=== PATIENT | male | born 2000 | race Two or more races ===

== ENCOUNTER 2022-02-18 12:37 | Emergency (ER) | payer MEDICAID, SELFPAY ==
[2022-02-18 13:05] VITALS: BP 135/60; PULSE 75; RESP 18; TEMP 36.4; O2SAT 97; BMI 25.8
--- NOTE | 2022-02-18 13:09 | ED.URI ---
HPI - URI/Sore Throat General Chief Complaint: General Medical <CLARITA Hernández - Last Filed: 02/18/22 13:11> Stated Complaint: dental pain <CLARITA Hernández - Last Filed: 02/18/22 13:11> Time Seen by Provider: 02/18/22 13:24 <CLARITA Hernández - Last Filed: 02/18/22 13:11> Source: patient <Casper Dior MD - Last Filed: 02/18/22 15:05> Mode of arrival: ambulatory <Casper Dior MD - Last Filed: 02/18/22 15:05> Limitations: no limitations <Casper Dior MD - Last Filed: 02/18/22 15:05> History of Present Illness HPI Narrative: 1.5 weeks of sore throat, now getting worse, denies fever <Casper Dior MD - Last Filed: 02/18/22 15:05> MD elicited complaint: sore throat <Casper Dior MD - Last Filed: 02/18/22 15:05> Onset (ago): week(s) <Casper Dior MD - Last Filed: 02/18/22 15:05> Consistency: constant <Casper Dior MD - Last Filed: 02/18/22 15:05> Severity: moderate <Casper Dior MD - Last Filed: 02/18/22 15:05> Exacerbating factors: swallowing <Casper Dior MD - Last Filed: 02/18/22 15:05> Associated symptoms: denies other symptoms <Casper Dior MD - Last Filed: 02/18/22 15:05> Related Data Home Medications: Previous Rx's Medication Instructions Recorded amoxicillin 875 mg-potassium 1 tab PO BID #20 tabs 02/18/22 clavulanate 125 mg tablet amoxicillin 875 mg-potassium 1 tab PO BID #20 tabs 02/18/22 clavulanate 125 mg tablet naproxen 500 mg tablet (Naprosyn) 500 mg PO BID #20 tabs 02/18/22 <CLARITA Hernández - Last Filed: 02/18/22 13:11> Allergies/Adverse Reactions: Allergies Allergy/AdvReac Type Severity Reaction Status Date / Time No Known Allergies Allergy Unverified 11/19/19 17:08 <CLARITA Hernández - Last Filed: 02/18/22 13:11> Review of Systems Review of Systems: Yes all other systems are reviewed and are negative <Casper Dior MD - Last Filed: 02/18/22 15:05> ENT: Reports other (sore throat) <Casper Dior MD - Last Filed: 02/18/22 15:05> Neurologic: Denies Sensory deficit (Neuro) <Casper Dior MD - Last Filed: 02/18/22 15:05> [facility] Social History Social History: Social History Smoked in Last 30 Days: Yes Use of substances other than those prescribed or required for medical reasons: Yes Substance Use Type: Marijuana Advance Directives: No Advance Directives Information Provided: Yes <CLARITA Hernández - Last Filed: 02/18/22 13:11> Physical Exam Vital Signs: Vital Signs: Last Vital Signs Temp 98.6 F 02/18/22 13:50 Pulse 57 02/18/22 13:50 Resp 16 02/18/22 13:50 BP 104/61 02/18/22 13:50 Pulse Ox 97 02/18/22 13:50 O2 Del Method 02/18/22 13:50 BMI result Body Mass Index 25.8 <CLARITA Hernández - Last Filed: 02/18/22 13:11> Vital Signs: Last Vital Signs Temp 98.6 F 02/18/22 13:50 Pulse 57 02/18/22 13:50 Resp 16 02/18/22 13:50 BP 104/61 02/18/22 13:50 Pulse Ox 97 02/18/22 13:50 O2 Del Method 02/18/22 13:50 BMI result Body Mass Index 25.8 <Casper Dior MD - Last Filed: 02/18/22 15:05> Const: General: healthy appearing <Casper Dior MD - Last Filed: 02/18/22 15:05> Nutritional Appearance: average body habitus <Casper Dior MD - Last Filed: 02/18/22 15:05> Orientation/consciousness: oriented to person and patient oriented x3 <Casper Dior MD - Last Filed: 02/18/22 15:05> Limitations: no limitations <Casper Dior MD - Last Filed: 02/18/22 15:05> HEENT: Other: Pharynx with right sided erythema and swelling, no fluctuance to palpation. Patient with pharyngeal cellulitis extending to hard pallate <Casper Dior MD - Last Filed: 02/18/22 15:05> Head: Yes normal to inspection <Casper Dior MD - Last Filed: 02/18/22 15:05> Ears: external ears normal <Casper Dior MD - Last Filed: 02/18/22 15:05> General nose exam: Normal external nose present <Casper Dior MD - Last Filed: 02/18/22 15:05> Throat: Yes posterior oropharynx normal <Casper Dior MD - Last Filed: 02/18/22 15:05> Eyes: General: appearance normal, both eyes and all related structures <Casper Dior MD - Last Filed: 02/18/22 15:05> Neck: Other: supple <Casper Dior MD - Last Filed: 02/18/22 15:05> Neck: Yes normal visual inspection <Casper Dior MD - Last Filed: 02/18/22 15:05> Chest: Chest palpation & inspection: normal inspection of the chest <Casper Dior MD - Last Filed: 02/18/22 15:05> Resp: Auscultation: clear to auscultation bilaterally <Casper Dior MD - Last Filed: 02/18/22 15:05> Cardio: Jugular venous distension: no JVD <Casper Dior MD - Last Filed: 02/18/22 15:05> Rate: regular rate <Casper Dior MD - Last Filed: 02/18/22 15:05> Rhythm: regular rhythm <Casper Dior MD - Last Filed: 02/18/22 15:05> Heart sounds: S1 normal heart sound present and S2 normal heart sound present <Casper Dior MD - Last Filed: 02/18/22 15:05> GI: Inspection: Yes normal to inspection <Casper Dior MD - Last Filed: 02/18/22 15:05> Palpation (GI): Soft to palpation, nontender and No hepatosplenomegaly present <Casper Dior MD - Last Filed: 02/18/22 15:05> Auscultation: normal bowel sounds <Casper Dior MD - Last Filed: 02/18/22 15:05> : General: Yes no CVA tenderness <Casper Dior MD - Last Filed: 02/18/22 15:05> Back/Spine/Pelvis: Back: no CVA tenderness <Casper Dior MD - Last Filed: 02/18/22 15:05> Skin: General skin exam: no rashes or lesions noted <Casper Doir MD - Last Filed: 02/18/22 15:05> Neuro: General: oriented to person and patient oriented x3 <Casper Dior MD - Last Filed: 02/18/22 15:05> Cranial nerves: Yes CN's II-XII intact bilaterally <Casper Dior MD - Last Filed: 02/18/22 15:05> Motor exam (neuro): 5/5 motor strength present throughout <Casper Dior MD - Last Filed: 02/18/22 15:05> Sensory Exam: No Sensory deficit (Neuro) <Casper Dior MD - Last Filed: 02/18/22 15:05> Extrem: General: Yes normal to inspection <Casper Dior MD - Last Filed: 02/18/22 15:05> Psych: Appearance: grossly normal <Casper Dior MD - Last Filed: 02/18/22 15:05> Course Course Course Narrative: RME-13:10PM - 21yoM presenting to the ED c c/o right-sided throat pain with pain upon swallowing x 1 week. No trouble swallowing/trismus/drooling. Denies any fevers. Denies any other symptoms complaints or concerns at this time. On exam patient has the noticeable right peritonsillar abscess. Plan: He will need labs, blood cultures, lactic acid and CT scan of soft tissue neck and possible drainage. Patient will be sent to the ED for further evaluation treatment. <CLARITA Hernández - Last Filed: 02/18/22 13:11> Reevaluation(s) Reevaluation #1: patient history and physical consistent with pharyngeal cellulitis. no fluctuance on on palpation gave unasyn and decadron will dc on augmentin <Casper Dior MD - Last Filed: 02/18/22 15:05> Time: 14:44 <Casper Dior MD - Last Filed: 02/18/22 15:05> Medications Administered Discontinued Medications Generic Name Dose Route Start Last Admin Trade Name Freq PRN Reason Stop Dose Admin Dexamethasone Sodium Phosphate 10 mg 02/18/22 13:31 02/18/22 13:46 Dexamethasone Sod Phosphate 10 Mg/Ml Vial IVPUSH 02/18/22 13:32 10 mg ONCE ONE Administration Ampicillin Sodium/Sulbactam 100 mls @ 200 mls/hr 02/18/22 13:32 02/18/22 15:03 Sodium 3 gm/ Sodium Chloride IV 02/18/22 14:01 Infused ONCE ONE Infusion <CLARITA Hernández - Last Filed: 02/18/22 13:11> Medications Administered Discontinued Medications Generic Name Dose Route Start Last Admin Trade Name Freq PRN Reason Stop Dose Admin Dexamethasone Sodium Phosphate 10 mg 02/18/22 13:31 02/18/22 13:46 Dexamethasone Sod Phosphate 10 Mg/Ml Vial IVPUSH 02/18/22 13:32 10 mg ONCE ONE Administration Ampicillin Sodium/Sulbactam 100 mls @ 200 mls/hr 02/18/22 13:32 02/18/22 15:03 Sodium 3 gm/ Sodium Chloride IV 02/18/22 14:01 Infused ONCE ONE Infusion <Casper Dior MD - Last Filed: 02/18/22 15:05> Medical Decision Making Differential Diagnosis strep <Casper Dior MD - Last Filed: 02/18/22 15:05> Lab Data Result Diagrams: : 02/18/22 13:40 02/18/22 13:40 <CLARITA Hernández - Last Filed: 02/18/22 13:11> Labs: Lab Results 02/18/22 02/18/22 02/18/22 Range/Units 13:40 13:40 13:40 WBC 11.5 H (4.8-10.8) X10*3/uL RBC 5.24 (4.60-5.80) X10*6/uL Hgb 14.2 (14.0-18.0) g/dl Hct 43.1 (42.0-52.0) % MCV 82.3 (80.0-98.0) fL MCH 27.1 (27.0-33.0) pg MCHC 32.9 (31.0-36.0) g/dl RDW 12.5 (11.0-16.0) % Plt Count 286 (160-400) X10*3/uL MPV 9.4 (9.4-12.4) fL Immature Gran % (Auto) 1.5 H (0.0-0.4) % Neut % (Auto) 68.8 (45-73) % Lymph % (Auto) 19.5 L (20-40) % [place] % (Auto) 8.3 (2-11) % Eos % (Auto) 1.4 (0-4) % Baso % (Auto) 0.5 (0-2) % Lymph # (Auto) 2.2 (1.2-4.9) X10*3/uL [place] # (Auto) 1.0 (0.1-1.2) X10*3/uL Eos # (Auto) 0.2 (0.0-0.4) X10*3/uL Baso # (Auto) 0.1 (0.0-0.2) X10*3/uL Abs Immat Gran (auto) 0.17 H (0.00-0.03) X10*3/uL Absolute Neuts (auto) 7.9 (2.0-8.3) x10*3/uL Absolute Nucleated RBC 0.000 (0.0-0.012) X10*3/uL Nucleated RBC % (auto) 0.0 (0.0-0.2) /100WBC PT 14.9 H (10.0-13.1) SEC INR 1.3 H (0.9-1.1) Sodium 143 (135-145) mmol/L Potassium 3.6 (3.3-5.1) mmol/L Chloride 108 (96-108) mmol/L Carbon Dioxide 27 (22-29) mmol/L Anion Gap 12 (12-20) BUN 10 (9-16) mg/dL Creatinine 0.76 (0.5-1.4) mg/dL Estim Creat Clear Calc 160.0 Estimated GFR > 60 Random Glucose 109 (60-115) mg/dL Calcium 9.2 (8.4-10.2) mg/dL Total Bilirubin 0.7 (0.0-1.0) mg/dL AST 10 (5-37) U/L ALT 8 (0-40) U/L Alkaline Phosphatase 66 (39-117) U/L Total Protein 7.2 (6.5-8.0) g/dL Albumin 4.0 (3.5-5.0) g/dL Influenza Type A (PCR) (Negative) Influenza Type B (PCR) (Negative) RSV RNA Qual (PCR) (Negative) SARS-CoV-2 RNA (RT-PCR) (Negative) S. pyogenes GrpA HERLINDA (Negative) 02/18/22 02/18/22 Range/Units 13:40 13:40 WBC (4.8-10.8) X10*3/uL RBC (4.60-5.80) X10*6/uL Hgb (14.0-18.0) g/dl Hct (42.0-52.0) % MCV (80.0-98.0) fL MCH (27.0-33.0) pg MCHC (31.0-36.0) g/dl RDW (11.0-16.0) % Plt Count (160-400) X10*3/uL MPV (9.4-12.4) fL Immature Gran % (Auto) (0.0-0.4) % Neut % (Auto) (45-73) % Lymph % (Auto) (20-40) % [place] % (Auto) (2-11) % Eos % (Auto) (0-4) % Baso % (Auto) (0-2) % Lymph # (Auto) (1.2-4.9) X10*3/uL [place] # (Auto) (0.1-1.2) X10*3/uL Eos # (Auto) (0.0-0.4) X10*3/uL Baso # (Auto) (0.0-0.2) X10*3/uL Abs Immat Gran (auto) (0.00-0.03) X10*3/uL Absolute Neuts (auto) (2.0-8.3) x10*3/uL Absolute Nucleated RBC (0.0-0.012) X10*3/uL Nucleated RBC % (auto) (0.0-0.2) /100WBC PT (10.0-13.1) SEC INR (0.9-1.1) Sodium (135-145) mmol/L Potassium (3.3-5.1) mmol/L Chloride (96-108) mmol/L Carbon Dioxide (22-29) mmol/L Anion Gap (12-20) BUN (9-16) mg/dL Creatinine (0.5-1.4) mg/dL Estim Creat Clear Calc Estimated GFR Random Glucose (60-115) mg/dL Calcium (8.4-10.2) mg/dL Total Bilirubin (0.0-1.0) mg/dL AST (5-37) U/L ALT (0-40) U/L Alkaline Phosphatase (39-117) U/L Total Protein (6.5-8.0) g/dL Albumin (3.5-5.0) g/dL Influenza Type A (PCR) NEGATIVE (Negative) Influenza Type B (PCR) NEGATIVE (Negative) RSV RNA Qual (PCR) NEGATIVE (Negative) SARS-CoV-2 RNA (RT-PCR) NEGATIVE (Negative) S. pyogenes GrpA HERLINDA Negative (Negative) <CLARITA Hernández - Last Filed: 02/18/22 13:11> Lab Results 02/18/22 02/18/22 02/18/22 Range/Units 13:40 13:40 13:40 WBC 11.5 H (4.8-10.8) X10*3/uL RBC 5.24 (4.60-5.80) X10*6/uL Hgb 14.2 (14.0-18.0) g/dl Hct 43.1 (42.0-52.0) % MCV 82.3 (80.0-98.0) fL MCH 27.1 (27.0-33.0) pg MCHC 32.9 (31.0-36.0) g/dl RDW 12.5 (11.0-16.0) % Plt Count 286 (160-400) X10*3/uL MPV 9.4 (9.4-12.4) fL Immature Gran % (Auto) 1.5 H (0.0-0.4) % Neut % (Auto) 68.8 (45-73) % Lymph % (Auto) 19.5 L (20-40) % [place] % (Auto) 8.3 (2-11) % Eos % (Auto) 1.4 (0-4) % Baso % (Auto) 0.5 (0-2) % Lymph # (Auto) 2.2 (1.2-4.9) X10*3/uL [place] # (Auto) 1.0 (0.1-1.2) X10*3/uL Eos # (Auto) 0.2 (0.0-0.4) X10*3/uL Baso # (Auto) 0.1 (0.0-0.2) X10*3/uL Abs Immat Gran (auto) 0.17 H (0.00-0.03) X10*3/uL Absolute Neuts (auto) 7.9 (2.0-8.3) x10*3/uL Absolute Nucleated RBC 0.000 (0.0-0.012) X10*3/uL Nucleated RBC % (auto) 0.0 (0.0-0.2) /100WBC PT 14.9 H (10.0-13.1) SEC INR 1.3 H (0.9-1.1) Sodium 143 (135-145) mmol/L Potassium 3.6 (3.3-5.1) mmol/L Chloride 108 (96-108) mmol/L Carbon Dioxide 27 (22-29) mmol/L Anion Gap 12 (12-20) BUN 10 (9-16) mg/dL Creatinine 0.76 (0.5-1.4) mg/dL Estim Creat Clear Calc 160.0 Estimated GFR > 60 Random Glucose 109 (60-115) mg/dL Calcium 9.2 (8.4-10.2) mg/dL Total Bilirubin 0.7 (0.0-1.0) mg/dL AST 10 (5-37) U/L ALT 8 (0-40) U/L Alkaline Phosphatase 66 (39-117) U/L Total Protein 7.2 (6.5-8.0) g/dL Albumin 4.0 (3.5-5.0) g/dL Influenza Type A (PCR) (Negative) Influenza Type B (PCR) (Negative) RSV RNA Qual (PCR) (Negative) SARS-CoV-2 RNA (RT-PCR) (Negative) S. pyogenes GrpA HERLINDA (Negative) 02/18/22 02/18/22 Range/Units 13:40 13:40 WBC (4.8-10.8) X10*3/uL RBC (4.60-5.80) X10*6/uL Hgb (14.0-18.0) g/dl Hct (42.0-52.0) % MCV (80.0-98.0) fL MCH (27.0-33.0) pg MCHC (31.0-36.0) g/dl RDW (11.0-16.0) % Plt Count (160-400) X10*3/uL MPV (9.4-12.4) fL Immature Gran % (Auto) (0.0-0.4) % Neut % (Auto) (45-73) % Lymph % (Auto) (20-40) % [place] % (Auto) (2-11) % Eos % (Auto) (0-4) % Baso % (Auto) (0-2) % Lymph # (Auto) (1.2-4.9) X10*3/uL [place] # (Auto) (0.1-1.2) X10*3/uL Eos # (Auto) (0.0-0.4) X10*3/uL Baso # (Auto) (0.0-0.2) X10*3/uL Abs Immat Gran (auto) (0.00-0.03) X10*3/uL Absolute Neuts (auto) (2.0-8.3) x10*3/uL Absolute Nucleated RBC (0.0-0.012) X10*3/uL Nucleated RBC % (auto) (0.0-0.2) /100WBC PT (10.0-13.1) SEC INR (0.9-1.1) Sodium (135-145) mmol/L Potassium (3.3-5.1) mmol/L Chloride (96-108) mmol/L Carbon Dioxide (22-29) mmol/L Anion Gap (12-20) BUN (9-16) mg/dL Creatinine (0.5-1.4) mg/dL Estim Creat Clear Calc Estimated GFR Random Glucose (60-115) mg/dL Calcium (8.4-10.2) mg/dL Total Bilirubin (0.0-1.0) mg/dL AST (5-37) U/L ALT (0-40) U/L Alkaline Phosphatase (39-117) U/L Total Protein (6.5-8.0) g/dL Albumin (3.5-5.0) g/dL Influenza Type A (PCR) NEGATIVE (Negative) Influenza Type B (PCR) NEGATIVE (Negative) RSV RNA Qual (PCR) NEGATIVE (Negative) SARS-CoV-2 RNA (RT-PCR) NEGATIVE (Negative) S. pyogenes GrpA HERLINDA Negative (Negative) <Casper Dior MD - Last Filed: 02/18/22 15:05> Discharge Plan Discharge Clinical Impression: Cellulitis of pharynx, Pharyngitis <CLARITA Hernández - Last Filed: 02/18/22 13:11> Patient Disposition: Home, Self-Care <CLARITA Hernández - Last Filed: 02/18/22 13:11> Instructions: Pharyngitis (ED) <CLARITA Hernández - Last Filed: 02/18/22 13:11> Prescriptions: New amoxicillin-pot clavulanate 875-125 mg tablet 1 tab PO BID Qty: 20 0RF amoxicillin-pot clavulanate 875-125 mg tablet 1 tab PO BID Qty: 20 0RF naproxen [Naprosyn] 500 mg tablet 500 mg PO BID Qty: 20 0RF <CLARITA Hernández - Last Filed: 02/18/22 13:11> Referrals: Mauro Rodriguez [Physician] - 02/22/22 <CLARITA Hernández - Last Filed: 02/18/22 13:11>
[2022-02-18 13:45] LABS: MANUAL DIFF FLAG NO
[2022-02-18] MEDS: dexAMETHasone sod phosphate 10 MG/ML VIAL IVPUSH (13:46)
[2022-02-18] MEDS: Ampicillin Sodium/Sulbactam Na 3 GM in 0.9 % Sodium Chloride 100 ML IV (13:46)
--- NOTE | 2022-02-18 13:48 | PC.NURSE ---
Pt presents with right sided tonsilar swelling, pain x 1 week, worse x 3 days. Denies diff breathing, breathing easy/unlabored. Swabs obtained/sent. Pt medicated as charted. speaking full sentences, sl muffled voice noted.
[2022-02-18 13:49] LABS: Basophils Absolute Auto 0.1 X10*3/uL (0.0-0.2); Basophils Percent Auto 0.5 % (0-2); Eosinophils Absolute Auto 0.2 X10*3/uL (0.0-0.4); Eosinophils Percent Auto 1.4 % (0-4); Hematocrit 43.1 % (42.0-52.0); Hemoglobin 14.2 g/dl (14.0-18.0); Imm Gran Abs Auto 0.17 X10*3/uL (0.00-0.03); Imm Gran Pct Auto 1.5 % (0.0-0.4); Lymphocytes Absolute Auto 2.2 X10*3/uL (1.2-4.9); Lymphocytes Percent Auto 19.5 % (20-40); Mean Corpuscular HGB Conc 32.9 g/dl (31.0-36.0); Mean Corpuscular Hemoglobin 27.1 pg (27.0-33.0); Mean Corpuscular Volume 82.3 fL (80.0-98.0); Mean Platelet Volume 9.4 fL (9.4-12.4); Monocytes Percent Auto 8.3 % (2-11); Neutrophils Absolute Auto 7.9 x10*3/uL (2.0-8.3); Neutrophils Percent Auto 68.8 % (45-73); Platelet Count 286 X10*3/uL (160-400); Red Blood Count 5.24 X10*6/uL (4.60-5.80); Red Cell Distribution Width 12.5 % (11.0-16.0); White Blood Count 11.5 X10*3/uL (4.8-10.8)
[2022-02-18 13:50] VITALS: BP 104/61; PULSE 57; RESP 16; TEMP 37; O2SAT 97
[2022-02-18 13:54] LABS: INTERNATIONAL NORM RATIO 1.3 (0.9-1.1); Prothrombin Time 14.9 SEC (10.0-13.1)
[2022-02-18 13:56] LABS: Strep A Nucleic Acid Negative (Negative)
[2022-02-18 14:05] LABS: Alanine Aminotransferase 8 U/L (0-40); Alkaline Phosphatase 66 U/L (39-117); Anion Gap 12 (12-20); Aspartate Amino Transferase 10 U/L (5-37); Bilirubin Total 0.7 mg/dL (0.0-1.0); Blood Urea Nitrogen 10 mg/dL (9-16); Calcium 9.2 mg/dL (8.4-10.2); Carbon Dioxide 27 mmol/L (22-29); Chloride 108 mmol/L (96-108); Estimated Glomerular Filt Rate > 60; Glucose Random 109 mg/dL (60-115); Potassium 3.6 mmol/L (3.3-5.1); Sodium 143 mmol/L (135-145); Total Protein 7.2 g/dL (6.5-8.0)
[2022-02-18 14:24] LABS: Influenza A PCR NEGATIVE (Negative); Influenza B PCR NEGATIVE (Negative); Resp Syncy Virus RNA Qual PCR NEGATIVE (Negative); SARS COV2 PCR INHOUSE NEGATIVE (Negative)
== END 2022-02-18 15:10 | disposition home or self-care (01) ==
PROVIDERS: Physician Assistant Medical; Emergency Provider Emergency Medicine
DX: J02.9 Acute pharyngitis, unspecified (principal); Z20.822 Contact with and (suspected) exposure to COVID-19; Z79.899 Other long term (current) drug therapy
CPT/HCPCS: 0241U; 80053; 85025; 85610; 87651; 99284; J0295; J1100

== ENCOUNTER 2024-06-22 17:35 | Emergency (ER) | payer OTHER, SELFPAY ==
[2024-06-22 17:52] VITALS: BP 120/74; PULSE 66; RESP 18; TEMP 37.4; O2SAT 98; BMI 27.2
--- NOTE | 2024-06-22 17:56 | ED_ITS ---
HPI - Extremity Problem General Chief complaint: Extremity Injury, Upper Stated complaint: left wrist pain/work inj Time Seen by Provider: 06/22/24 17:56 Source: patient, RN notes reviewed and old records reviewed Mode of arrival: ambulatory Limitations: no limitations History of Present Illness ED Provider: Dionisio HPI Narrative: Patient is a 23-year-old left-hand dominant male presenting to the emergency department with complaint of left wrist pain for the past few days. States that he works at [employer] and pain began after lifting many boxes. Has been icing for the past few days with little relief. Denies fall or other trauma. Complaint: joint pain Onset (ago): day(s) Related Data Previous Rx's ?Medication ?Instructions ?Recorded amoxicillin 875 mg-potassium 1 tab PO BID #20 tabs 02/18/22 clavulanate 125 mg tablet amoxicillin 875 mg-potassium 1 tab PO BID #20 tabs 02/18/22 clavulanate 125 mg tablet naproxen 500 mg tablet (Naprosyn) 500 mg PO BID #20 tabs 02/18/22 prednisone 20 mg tablet 40 mg (2 x 20 mg) PO DAILY #14 tabs 06/22/24 Allergies Allergy/AdvReac Type Severity Reaction Status Date / Time No Known Allergies Allergy Verified 06/22/24 17:53 Review of Systems Review of Systems: As per HPI. Yes all other systems are reviewed and are negative Constitutional: Constitutional: Reports as per HPI [facility] Social History Social History Substance Use Type: Marijuana Advance Directives: No Advance Directives Information Provided: No Physical Exam Vital Signs: Vital Signs: Last Vital Signs Temp 99.3 F 06/22/24 18:14 Pulse 66 06/22/24 18:14 Resp 18 06/22/24 18:14 BP 120/74 06/22/24 18:14 Pulse Ox 98 06/22/24 18:14 O2 Del Method Room Air 06/22/24 18:14 BMI result Body Mass Index 27.2 Vital signs have been reviewed and appear to be correct. Blood pressure normal. Heart rate normal. Respiratory rate normal. Temperature normal. Oxygen saturation normal. Const: General: cooperative, healthy appearing and no acute distress Orientation/consciousness: oriented to person, oriented to place, oriented to time and patient oriented x3 Limitations: no limitations HEENT: Head: Yes normocephalic and Yes atraumatic Ears: external ears normal General nose exam: Normal external nose present Face and sinus: Yes face symmetric Mouth: oropharynx normal and moist mucous membranes Throat: Yes uvula midline Eyes: Pupils: Equal, round and reactive pupils present Neck: Neck: Yes normal visual inspection and Yes supple Resp: Effort & Inspection: normal respiratory effort and able to speak in complete sentences Auscultation: clear to auscultation bilaterally Cardio: Rate: regular rate Rhythm: regular rhythm Heart sounds: S1 normal heart sound present and S2 normal heart sound present GI: Palpation (GI): Soft to palpation and nontender Auscultation: normoactive bowel sounds : General: Yes no CVA tenderness Back/Spine/Pelvis: Back: no CVA tenderness Skin: General skin exam: elasticity normal and turgor normal Neuro: General: oriented to person, oriented to place, oriented to time, patient oriented x3, moves all extremities, no focal motor deficits and CN's II- XI intact bilaterally Cranial nerves: Yes Equal, round and reactive pupils present Cognition (Neuro): normal cognition Extrem: General: Yes full ROM, Yes no pedal edema and Yes no calf tenderness Left upper extremity: wrist distal Details: normal to inspection, normal ROM, normal vascular exam and radial pulse present; no tenderness, no swelling, Tinel's positive and Phalen's positive and hand Details: normal to inspection, normal capillary refill, neuromotor exam normal, neurosensory exam normal, vascular exam Details: radial pulse present and normal capillary refill and normal ROM of fingers Psych: Mental Status: mental status grossly normal Affect: normal affect Thought process: Normal thought process present Medical Decision Making Medical Decision Making MDM Narrative: Patient is a 23-year-old left-hand dominant male presenting to the emergency department with complaint of left wrist pain for the past few days. On exam patient is awake, A+Ox3, VS WNL, afebrile, normal neurological exam without focal deficits, physical exam findings as above. Given reported symptoms and physical exam findings, initial differential includes but is not limited to left wrist stain, sprain, carpal tunnel syndrome. Physical exam findings consistent with carpal tunnel syndrome. Will discharge on course of prednisone, advised Tylenol and ibuprofen, patient provided with Kael bandage and discussed that he can purchase [id number] wrist brace for additional support. Advised to ice intermittently. Avoid heavy lifting until symptoms improve. Return precautions discussed. Patient verbalized understanding of and agreement with plan. Differential Diagnosis Differential Diagnoses: The differential diagnosis associated with the presentation includes As per [facility] Admission/Observation Consideration of admission/observation: Escalation of care including adm ission/observation considered Patient would have been admitted to the hospital had their work up had any findings where hospital admission was appropriate and their clinical presentation warranted hospital admission. External Record Review External record reviewed: Inpatient record, Office record and Outpatient record Tests considered The following testing was considered but not selected: x-ray imaging considered, however, patient denies traumatic injury Prescription Management I considered prescription management with: Other Discharge Plan Discharge Clinical Impression: Acute carpal tunnel syndrome of left wrist Patient Disposition: Home, Self-Care Instructions: How to Use an Elastic Bandage (ED), Paresthesia (ED), R.I.C.E. Treatment (ED) Additional Instructions: You have been evaluated in the emergency department today for wrist pain. Based on your physical exam, your symptoms are likely due to an inflammation of the nerves in your wrist. We have provided an Kael wrap for you to use while your wrist heals. Please rest, ice, and elevate your wrist, and resume normal activities as tolerated. You can purchase an [id number] supportive wrist brace as well. You have been prescribed a short course of steroids to decrease inflammation. We recommend you take 600mg ibuprofen every 6 hours or 650mg Tylenol every 6 hours as needed for pain. If needed you can alternate these medications as they take 1 medication every 3 hours. For instance at noon take ibuprofen, then at 3:00 p.m. take Tylenol, then at 6:00 p.m. take ibuprofen. Please schedule an appointment for follow-up with your primary care provider this week. Return to the emergency department if you experience worsening pain, numbness, tingling, change of color in your hand/fingers, or any other concerning symptoms. Prescriptions: New prednisone 20 mg tablet 40 mg PO DAILY Qty: 14 0RF No Action amoxicillin-pot clavulanate 875-125 mg tablet 1 tab PO BID Qty: 20 0RF amoxicillin-pot clavulanate 875-125 mg tablet 1 tab PO BID Qty: 20 0RF naproxen [Naprosyn] 500 mg tablet 500 mg PO BID Qty: 20 0RF Stand Alone Forms: Work/School Release Interventions: ED Discharge Assessment Last Done: 06/22/24 18:14 Discharge Date/Time: 06/22/24 18:15 Print Language: Uz[place]
[2024-06-22 18:14] VITALS: BP 120/74; PULSE 66; RESP 18; TEMP 37.4; O2SAT 98
== END 2024-06-22 18:15 | disposition home or self-care (01) ==
PROVIDERS: Emergency Provider Emergency Medicine
DX: G56.02 Carpal tunnel syndrome, left upper limb (principal)
CPT/HCPCS: 99282; 99283

== ENCOUNTER 2024-08-13 13:33 | Inpatient (IN) | payer SELFPAY ==
[2024-08-13] VITALS (9 sets, daily range): BP systolic 93–145; BP diastolic 41–95; PULSE 64–102; RESP 13–33; TEMP 36–36.8; O2SAT 94–100; BMI 28.5
--- NOTE | ~2024-08-13 | MR_ITS ---
EXAMINATION: MR BRAIN WITHOUT CONTRAST CLINICAL INFORMATION: New onset seizures. COMPARISON: None available. TECHNIQUE: MRI of the brain was obtained using routine sequences without contrast. Seizure protocol was utilized. Examination performed on a 1.5 Alexa Siemens high-field unit. FINDINGS: There is motion degradation on several pulsing sequences. This decreases the sensitivity of the exam. There is no diffusion restriction. There is no intracranial hemorrhage, acute infarction, mass effect, or edema. Ventricles, sulci, and cisterns are normal in size and configuration for patient age. No shift of midline. There is a megacisterna magna, normal variant. No abnormal hemosiderin deposition is identified. There is no hippocampal atrophy identified. The hippocampal formations are normal in signal, volume, and symmetric bilaterally. Temporal horns are symmetric. There are no temporal lobe signal abnormalities identified. There is no heterotropic pulido matter, or evidence of cortical dysplasia identified. There are no white matter abnormalities identified. Midline structures appear normally formed. The pituitary gland appears normal. Posterior fossa structures appear normal. Cerebellar tonsils are appropriately located. Major flow voids are preserved within the skull base. The globes and orbital contents demonstrate no abnormalities. Paranasal sinuses are clear bilaterally. Nasal septum is midline without spur. The mastoids and tympanic cavities are normally aerated. Extracranial soft tissues demonstrate mildly prominent adenoidal soft tissues, likely reactive. No suspicious bone marrow changes are evident. Atlantoaxial joint is normal. MR/MR head/brain wo con IMPRESSION: 1. No evidence of intracranial hemorrhage, acute infarction, mass effect, or edema. 2. No significant hippocampal signal abnormalities or atrophy. No signal abnormalities in the temporal lobes.. 3. No evidence of heterotopic pulido matter or cortical dysplasia identified. Electronically signed by: Raul Estevez MD 08/14/2024 12:33 PM EDT
--- NOTE | ~2024-08-13 | CT_ITS ---
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 No other abnormal extra-axial fluid collection. No evidence of acute intracranial hemorrhage. No findings of vasogenic or cytotoxic edema. The ventricles and basilar cisterns are patent. Bones intact. No acute orbital abnormality. Paranasal sinuses and mastoid air cells are clear. IMPRESSION: 1. No acute intracranial findings. This document has been electronically signed by: Konstantin Fair MD on 08/13/2024 20:07:33
--- NOTE | 2024-08-13 13:42 | ED.GENADULT ---
HPI - General Adult General Chief complaint: Nausea/Vomiting/Diarrhea Stated complaint: vomiting sweating Time Seen by Provider: 08/13/24 14:54 Source: patient and family Mode of arrival: ambulatory Limitations: no limitations History of Present Illness ED Provider: PUMA SR narrative: 23 yo male with resolved lower abdominal pain was sweaty and pale then vomited. No LOC, no CP/SOB. All symptoms resolved now. He states he was fine before all of this. Family was worried as he looked sweaty. Patient reports he feels fine no no GI, symptoms and he has no n/v now. additional history after seizure in ED- brother found him acting weird this AM, then patient started to talk about his abdomen and vomited he was sweaty - EMS arrived they declined transport. Mom brought him him. 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 He drinks a lot of caffeine. They note his father had seizures but this was due to him having meningitis as an MD complaint: abd pain n/v felt faint Onset (ago): hour(s) (few) Location: abdomen Radiation: non-radiation Severity: moderate Quality: stabbing Pain Consistency: now resolved Relieving factors: none Exacerbating factors: none Associated symptoms: diaphoresis and nausea/vomiting Treatments prior to arrival: none Related Data Previous Rx's ?Medication ?Instructions ?Recorded levetiracetam 500 mg tablet 500 mg PO BID #180 tabs 08/14/24 Allergies Allergy/AdvReac Type Severity Reaction Status Date / Time No Known Allergies Allergy Verified 08/13/24 13:40 Review of Systems Review of Systems: Constitutional : No Fever, No Chills, No Fatigue ENT/Mouth : No sore throat, No Rhinorrhea Eyes: No Eye Pain, No Swelling, No Redness Cardiovascular : No Chest Pain, No SOB, No Dyspnea on Exertion Respiratory : No Cough, No Sputum Gastrointestinal : No Nausea, No Vomiting, No Diarrhea, No abdominal Pain Genitourinary : No Dysuria, No Urinary Frequency, No Hematuria, Musculoskeletal : No joint pain, No Myalgias, No Joint Swelling Skin : No Skin Lesions, No rash Neuro : No Weakness, No Numbness, No Dizziness, no Headache Psych : No Anxiety/Panic, No Depression All other systems reviewed and are negative [facility] Past Medical History Attestation statement: The following information was validated with the patient. Medical History Heart murmur Social History Social History (Updated 08/13/24 @ 15:13 by Emelina Fermin DO) Patient Tobacco Use Status: Never used Tobacco Substance Use Type: Marijuana Physical Exam ED Vital Signs: Vital Signs - 24 hr 08/13/24 15:40 08/13/24 16:43 08/13/24 17:38 Temperature Pulse Rate 102 H 70 68 Respiratory Rate 33 H 20 22 H Blood Pressure 107/42 L 109/52 L 110/63 Pulse Oximetry 98 96 98 Oxygen Delivery Method Room Air Room Air Nasal Cannula Oxygen Flow Rate 3 08/13/24 18:09 08/13/24 19:10 Temperature 98.0 F Pulse Rate 68 70 Respiratory Rate 23 H 18 Blood Pressure 96/47 L 110/60 Pulse Oximetry 99 97 Oxygen Delivery Method Room Air Room Air Oxygen Flow Rate BMI result Body Mass Index 28.5 Appearance: Alert. Oriented X3. No acute distress. Eyes: Pupils equal, round and reactive to light. ENT: Pharynx normal. no cold sores Neck: Normal inspection. Neck supple. CVS: Normal heart rate and rhythm. Pulses normal. Respiratory: No respiratory distress. Breath sounds normal. Abdomen: Soft and nontender. Skin: Skin warm and dry. Normal skin color. Normal skin turgor. Extremities: No lower extremity edema. No calf ttp Neuro: Oriented X 3. No motor deficit. No sensory deficit. CN2-12 intact Course Course Course Narrative: RME, this is a rapid medical exam performed by Hayder Wooten please refer to primary provider for complete H&P- 23 year old male presents for evaluation of abdominal pain and one episode of vomiting. 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 I left room to order medications and asked mom about a seizure history. Mom then notes her son found him this AM in bed acting weird and she just relayed this when we were going to discharge him. Patient then had a full blown GTC lasting 1 min - blood sugar normal given this could be the third seizure I have ordered IV valium, IV keppra and head CT Reevaluation #2: agitated again thrashing at this time I am going to give IV versed 2mg he has n/v as well we suctioned his airway no hypoxia he was on his side and able to clear the vomit Reevaluation #3: medications not given for seizures after initial 10mg valium - he received meds as he wants to sleep on his side and stomach and would not hold still for CT scan Additional Reevaluation(s): cased signed out to Dr. Hernandez [id number]: Received sign-out from this patient. Patient had 1 witnessed tonic-clonic seizure that seems to have had a focal facial twitching prodrome. There was also another event at home that was felt to be altered mental status without witnessed tonic-clonic seizure there was no incontinence tongue biting no injuries reported. 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 Smokes marijuana with the vape. No other drugs reported. No personal seizure history the father apparently had meningitis and seizure disorder as a child that resolved. I will follow up with the flaking roll operator and hospitalist to determine best disposition. The patient is getting Keppra IV no intracranial hemorrhage or mass on CT. Patient has no leukocytosis, fever or meningitic signs on exam doubt [employer] infection as an etiology. More likely this is stimulant/sleep/cannabis induced. David Hernandez MD Medications Administered Discontinued Medications Generic Name Dose Route Start Last Admin Trade Name Ameena PRN Reason Stop Dose Admin Diazepam 10 mg 08/13/24 15:34 08/13/24 15:25 Diazepam 10 Mg/2 Ml Cartridge IVPUSH 08/13/24 15:35 10 mg STAT STA Administration Droperidol 1.25 mg 08/13/24 16:32 08/13/24 16:33 Droperidol 5 Mg/2 Ml Vial IVPUSH 08/13/24 16:33 1.25 mg ONCE ONE Administration Enoxaparin Sodium 40 mg 08/14/24 09:30 08/14/24 08:44 Enoxaparin Sodium 40 Mg/0.4 Ml Syringe SUBCUT Not Given Q24H [facility] Levetiracetam 2,000 mg/ Sodium 120 mls @ 480 mls/hr 08/13/24 15:24 08/13/24 16:06 Chloride IV 08/13/24 15:38 Infused ONCE ONE Infusion Lactated Ringer's 1,000 mls @ 999 mls/hr 08/13/24 15:41 08/13/24 20:17 Lr IV 08/13/24 16:41 Infused .Q1H1M ONE Infusion Lactated Ringer's 1,000 mls @ 100 mls/hr 08/13/24 20:30 08/14/24 12:00 Lr IVCONT 08/14/24 06:29 Infused .Q10H BHUPENDRA Infusion Levetiracetam 750 mg/ Sodium 107.5 mls @ 430 mls/hr 08/14/24 09:00 08/14/24 08:31 Chloride IV Infused Q12H BHUPENDRA Infusion Ketamine HCl 25 mg 08/13/24 17:12 08/13/24 17:37 Ketamine Hcl/Ns 100 Mg/10 Ml Syringe IVPUSH 08/13/24 17:13 25 mg ONCE ONE Administration Midazolam HCl 2 mg 08/13/24 15:55 08/13/24 16:00 Midazolam Hcl 2 Mg/2 Ml Vial IVPUSH 08/13/24 15:56 2 mg ONCE ONE Administration Midazolam HCl 4 mg 08/13/24 16:31 08/13/24 16:32 Midazolam Hcl 2 Mg/2 Ml Vial IVPUSH 08/13/24 16:32 4 mg ONCE ONE Administration Midazolam HCl 6 mg 08/13/24 17:12 08/13/24 17:38 Midazolam Hcl 5 Mg/Ml Vial IVPUSH 08/13/24 17:13 6 mg ONCE ONE Administration Ondansetron HCl 4 mg 08/13/24 15:55 08/13/24 16:06 Ondansetron Hcl 4 Mg/2 Ml Vial IVPUSH 08/13/24 15:56 4 mg ONCE ONE Administration Sodium Chloride 3 ml 08/14/24 00:00 08/14/24 07:28 0.9 % Sodium Chloride Flush 3 Ml Syringe IVFLUSH Not Given QSHIFT BHUPENDRA Medical Decision Making Medical Decision Making MDM Narrative: 23 yo male with no PMH who denies drug use only uses THC initially told us he had n/v, sweatiness and RLQ pain this was felt to be brief pain that resolved and near syncope. On discharge (prior to family related another episode with confusion and acting off this was not relayed in initial history) he had a seizure like event with confusion, diaphoresis, facial twitching then another GTC lasting about a minute at this time IV valium and IV keppra given this could be the possible 3rdnd seizure today. Tox screen, CT head ordered. Plan to admit he has soft hematoma to the back of the head but he never complained of head injuryand this was not reported I have asked multiple times to get head CT on the patient since he seized including talking to charge out clerk, CT scan and clinical coordinator. Differential Diagnosis Differential Diagnoses: The differential diagnosis associated with the presentation includes mass,new onset seizure, toxic encephalopathy Admission/Observation Consideration of admission/observation: Escalation of care including admission/observation considered admission for seizure Consult Healthcare Provider Management of the patient was discussed with: Hospitalist (aware of case as well pending CT scan and monitoring) and Case Liner (ICU virgilio aware can admit if head CT is normal and patient is still in prolonged postictal state/agitated) Lab Data MDM Lab Attestation statement: I reviewed the patient's lab results. 08/14/24 06:21 08/14/24 06:21 Labs: Lab Results 08/13/24 08/13/24 08/13/24 Range/Units 13:59 14:48 15:19 WBC 5.3 (4.8-10.8) X10*3/uL RBC 5.07 (4.60-5.80) X10*6/uL Hgb 14.4 (14.0-18.0) g/dl Hct 41.9 L (42.0-52.0) % MCV 82.6 (80.0-98.0) fL MCH 28.4 (27.0-33.0) pg MCHC 34.4 (31.0-36.0) g/dl RDW 12.3 (11.0-16.0) % Plt Count 198 D (160-400) X10*3/uL MPV 8.9 L (9.4-12.4) fL Immature Gran % (Auto) 0.4 (0.0-0.4) % Neut % (Auto) 66.8 (45-73) % Lymph % (Auto) 23.6 (20-40) % [place] % (Auto) 7.8 (2-11) % Eos % (Auto) 0.6 (0-4) % Baso % (Auto) 0.8 (0-2) % Lymph # (Auto) 1.2 (1.2-4.9) X10*3/uL [place] # (Auto) 0.4 (0.1-1.2) X10*3/uL Eos # (Auto) 0.0 (0.0-0.4) X10*3/uL Baso # (Auto) 0.0 (0.0-0.2) X10*3/uL Abs Immat Gran (auto) 0.02 (0.00-0.03) X10*3/uL Absolute Neuts (auto) 3.5 (2.0-8.3) x10*3/uL Absolute Nucleated RBC 0.000 (0.0-0.012) X10*3/uL Nucleated RBC % (auto) 0.0 (0.0-0.2) /100WBC Sodium 135 (135-145) mmol/L Potassium 4.0 (3.3-5.1) mmol/L Chloride 101 (96-108) mmol/L Carbon Dioxide 26 (22-29) mmol/L Anion Gap 12 (12-20) BUN 14 (9-16) mg/dL Creatinine 0.71 (0.5-1.4) mg/dL Estim Creat Clear Calc 178.6 Estimated GFR > 60 POC Glucose 112 (60-115) mg/dL Random Glucose 149 H (60-115) mg/dL Calcium 9.0 (8.4-10.2) mg/dL Total Bilirubin 0.9 (0.0-1.0) mg/dL AST 17 (5-37) U/L ALT 11 (0-40) U/L Alkaline Phosphatase 46 (39-117) U/L C-Reactive Protein 0.13 (< or = 0.50) mg/dL Total Protein 6.8 (6.5-8.0) g/dL Albumin 4.3 (3.5-5.0) g/dL Lipase 13 (8-78) U/L Urine Color Yellow Urine Appearance Clear Urine pH 5.5 (5.0-9.0) Ur Specific [place] 1.015 (1.005-1.025) Urine Protein Negative (Neg-Trace) mg/dL Urine Glucose (UA) Negative (Negative) mg/dL Urine Ketones Negative (Negative) mg/dL Urine Blood Negative (Negative) Urine Nitrite Negative (Negative) Ur Leukocyte Esterase Negative (Negative) Urine RBC 0-2 (0-2) /HPF Urine WBC 0-5 (0-5) /HPF Ur Squamous Epith Cells 0-2 (0-2) /HPF Urine Bacteria None Seen (None Seen) Hyaline Casts 0-2 (0-2) /LPF Urine Opiates Screen Not Detected (Not Detect) Ur Buprenorphine Scrn Not Detected (Not Detect) ng/mL Ur Oxycodone Screen Not Detected (Not Detect) ng/mL Urine Methadone Screen Not Detected (Not Detect) ng/mL Urine Fentanyl Screen Not Detected (Not Detect) Ur Barbiturates Screen Not Detected (Not Detect) Ur Phencyclidine Scrn Not Detected (Not Detect) Ur Amphetamines Screen Not Detected (Not Detect) U Benzodiazepines Scrn Not Detected (Not Detect) Urine Cocaine Screen Not Detected (Not Detect) U Marijuana (THC) Screen POSITIVE H (Not Detect) Ethyl Alcohol 11 mg/dL Independent Interpretation I performed an independent interpretation of an: EKG and CT Scan Interpretation: Rate: 59 Rhythm: sinus jean [place]: normal Normal P waves. Normal JOSE. Normal QRS complex. ST T wave : normal no RJ qTC: 378 prior studies: no acute ischemia The study has been interpreted contemporaneously by me. . Independent Historian Clinical information obtained from an independent historian. History obtained from or confirmed by: Parent Critical Care Time Critical Care Time Critical Care Time: Yes Total Critical Care Time: 60 Attestation: Time is exclusive of separately billable procedures. Time includes: direct patient care, patient reassessment, coordination of patient care, interpretation of data (laboratory data, pulse oximetry, CT scans), review of patient's medical records, medical consultation and documentation of patient care. Repeat IV medications for sedation due to agitation and postictal period. Procedures excluded from critical care time: electrocardiography. Discharge Plan Discharge Clinical Impression: New onset seizure Patient Disposition: Admitted As Inpatient Interventions: ED Discharge Assessment Last Done: 08/14/24 14:50 Discharge Date/Time: 08/14/24 15:00
[2024-08-13 14:03] LABS: MANUAL DIFF FLAG NO
[2024-08-13 14:06] LABS: Basophils Percent Auto 0.8 % (0-2); Eosinophils Percent Auto 0.6 % (0-4); Hematocrit 41.9 % (42.0-52.0); Hemoglobin 14.4 g/dl (14.0-18.0); Imm Gran Abs Auto 0.02 X10*3/uL (0.00-0.03); Imm Gran Pct Auto 0.4 % (0.0-0.4); Lymphocytes Absolute Auto 1.2 X10*3/uL (1.2-4.9); Lymphocytes Percent Auto 23.6 % (20-40); Mean Corpuscular HGB Conc 34.4 g/dl (31.0-36.0); Mean Corpuscular Hemoglobin 28.4 pg (27.0-33.0); Mean Corpuscular Volume 82.6 fL (80.0-98.0); Mean Platelet Volume 8.9 fL (9.4-12.4); Monocytes Absolute Auto 0.4 X10*3/uL (0.1-1.2); Monocytes Percent Auto 7.8 % (2-11); Neutrophils Absolute Auto 3.5 x10*3/uL (2.0-8.3); Neutrophils Percent Auto 66.8 % (45-73); Platelet Count 198 X10*3/uL (160-400); Red Blood Count 5.07 X10*6/uL (4.60-5.80); Red Cell Distribution Width 12.3 % (11.0-16.0); White Blood Count 5.3 X10*3/uL (4.8-10.8)
[2024-08-13 14:20] LABS: Alanine Aminotransferase 11 U/L (0-40); Albumin Level 4.3 g/dL (3.5-5.0); Alkaline Phosphatase 46 U/L (39-117); Anion Gap 12 (12-20); Aspartate Amino Transferase 17 U/L (5-37); Bilirubin Total 0.9 mg/dL (0.0-1.0); Blood Urea Nitrogen 14 mg/dL (9-16); Carbon Dioxide 26 mmol/L (22-29); Chloride 101 mmol/L (96-108); Creatinine Clr Calc Pharmacy 178.6; Estimated Glomerular Filt Rate > 60; Glucose Random 149 mg/dL (60-115); Lipase 13 U/L (8-78); Sodium 135 mmol/L (135-145); Total Protein 6.8 g/dL (6.5-8.0)
[2024-08-13 15:00] LABS: Appearance Urine Clear; Color Urine Yellow; Glucose Urine UA Negative (Negative); Leukocyte Esterase Urine Negative (Negative); Nitrite Urine Negative (Negative); PH 5.5 (5.0-9.0); Specific Gravity - Urine 1.015 (1.005-1.025); Urine Blood Negative (Negative); Urine Ketones Negative (Negative); Urine Protein Negative (Neg-Trace)
--- NOTE | 2024-08-13 15:02 | ECG_ITS ---
Test Reason : NEAR SYNCOPE Blood Pressure : */* mmHG Vent. Rate : 59 BPM Atrial Rate : 59 BPM P-R Int : 160 ms QRS Dur : 88 ms QT Int : 382 ms P-R-T Axes : 68 70 57 degrees QTcB Int : 378 ms Sinus bradycardia with sinus arrhythmia Otherwise normal ECG No previous ECGs available Referred By: Emelina Fermin Electronically Signed By: GLORIA STINSON MD
[2024-08-13 15:04] LABS: Bacteria Urine None Seen (None Seen); Hyaline Casts Urine 0-2 /LPF (0-2); RBC Urine 0-2 /HPF (0-2); Squamous Epithelial Cell Urine 0-2 /HPF (0-2); WBC Urine 0-5 /HPF (0-5)
[2024-08-13] MEDS: diazePAM 10 MG/2 ML CARTRIDGE IVPUSH (15:25)
[2024-08-13] MEDS: levETIRAcetam 2,000 MG in 0.9 % Sodium Chloride 100 ML 480 MG IV (15:34)
--- NOTE | 2024-08-13 15:37 | PC.NURSE ---
During pt discharge preparation, pt suddenly became nonverbal, with distant stare for approx 45 seconds. Pt then became extremely diaphoretic and began repeating I dont know where I am going to go for my next job . vital signs: 145/95 65bpm 97%This nurse went to notify MD as pt would not be safe at [place]. PCT alerted t/w that pt appeared to be experiencing seizure activity. jerking movements of extremities, jaw clenching. Oral cavity was inspected, no foreign objects noted. Pt placed on 2l via NC, Pt suctioned to maintain airway. IV access was established and pt was medicated per MAY. Determination was made to move pt to ED [address] - of note pt mother stated someone may have given him something to help him . UDS added to UA specimen. report given to ESTELITA Mayorga.
[2024-08-13 15:47] LABS: Ethanol 11 mg/dL
[2024-08-13 15:47] LABS: Glucose, Whole Blood 112 mg/dL (60-115)
[2024-08-13 15:49] LABS: Amphetamine Screen Urine Not Detected (Not Detect); Barbiturates, Urine Not Detected (Not Detect); Benzodiazepines Screen Urine Not Detected (Not Detect); Buprenorphine Scr Not Detected (Not Detect); Cannabinoid Screen Urine POSITIVE (Not Detect); Cocaine Screen Urine Not Detected (Not Detect); Fentanyl, urine Not Detected (Not Detect); Methadone Screen, Urine Not Detected (Not Detect); Opiate Screen Urine Not Detected (Not Detect); Oxycodone Screen Urine Not Detected (Not Detect); Phencyclidine Screen Urine Not Detected (Not Detect)
[2024-08-13] MEDS: Midazolam HCl 2 MG/2 ML VIAL IVPUSH (16:00)
[2024-08-13] MEDS: Lactated Ringers 1,000 ML 999 ML IV (16:01)
[2024-08-13] MEDS: ondansetron HCL 4 MG/2 ML VIAL IVPUSH (16:06)
[2024-08-13 16:13] LABS: C Reactive Protein 0.13 mg/dL (< or = 0.50)
[2024-08-13] MEDS: Midazolam HCl 2 MG/2 ML VIAL 4 MG IVPUSH (16:32)
[2024-08-13] MEDS: droPERidol 5 MG/2 ML VIAL 1.25 MG IVPUSH (16:33)
[2024-08-13] MEDS: Ketamine HCl/NS 100 MG/10 ML SYRINGE 25 MG IVPUSH (17:37)
[2024-08-13] MEDS: Midazolam HCl 5 MG/ML VIAL 6 MG IVPUSH (17:38)
--- NOTE | 2024-08-13 17:41 | PC.NURSE ---
Pt transferred from [facility] after witnessed tonic clonic seizure, with no reported hx. Pt significantly post-ictal, repositioning himself constantly, restless and diaphoretic, unable to follow directions. 2 attempts made to move him through CT scan requiring additional sedation, MD remaining at bedside. PIV access reobtained. Pt currently more somnolent, family at bedside. VSS. Resp even, unlaboured.
--- NOTE | 2024-08-13 20:52 | PHA.MEDREC ---
Addendum entered by Jaimie Diamond RPh 08/13/24 20:53: MED REC REVIEWED Original Note: Pharmacy Consult ? Medication Reconciliation Pharmacy has completed the medication reconciliation. Patient and family at bedside states patent is not on any medications.
--- NOTE | 2024-08-13 21:44 | P.HPHOSP_ITS ---
History of Present Illness Date of Service: 08/13/24 Attending physician on admission: Patrick Botello Chief Complaint: Seizures Thomas Kyle is a 23 years old man with no significant past medical history who was brought to the ED by his mother. His mother was at bedside and provided HPI as the patient was sedated. Motor said that today morning around 09:30, patient's brother noted that the patient was acting weird and saying: help! help!. She noted that he was opening his eyes widely, was sweating and vomiting. It seems like he was complaining of dizziness. EMS was contacted. According to the molar, EMS found the patient to have normal vital signs and a glucose of 142; and was told that he was probably having the flu. Subsequently, his monitor decided to take him to the hospital as he persistent with the same symptoms and became very pale. It seems like EMS declined transport. While being evaluated in the emergency department he had a witnessed tonic-clonic seizure with a focal facial twitching prodrome. There is no tongue biting or incontinence. Mother said that the patient vapes marijuana and nicotine. Denied illicit drug use. 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 The patient has no history of seizures. He has 2nd cousins with history of seizures. Mother said the patient does not take medications daily. In the ED, he was found to have normal vital signs. Blood workup including CBC, CMP, CRP and lipase are unremarkable. Urinalysis is normal. Urine toxicology is positive for marijuana. Viral testing for COVID-19, influenza and RSV is negative. Head CT scan showed no acute intracranial findings. ECG showed sinus bradycardia with sinus arrhythmia, 59 bpm. ED tx: Keppra 2 g IV, ketamine 25 mg IV, LR 1 L bolus, midazolam 6 mg IV, diazepam 10 mg IV, droperidol 1.25 mg Zofran 4 mg Review of Systems 2 Review of Systems: Yes Unobtainable due to mental status PMFSH Medical History Heart murmur Social History (Updated 08/13/24 @ 15:13 by Emelina Fermin DO) Patient Tobacco Use Status: Never used Tobacco Use of substances other than those prescribed or required for medical reasons: No Substance Use Type: Marijuana Advance Directives: No Advance Directives Information Provided: No Meds Allergies Allergy/AdvReac Type Severity Reaction Status Date / Time No Known Allergies Allergy Verified 08/13/24 13:40 Active Medications: Current Medications Acetaminophen (Acetaminophen 325 Mg Tablet) 975 mg PO Q6H PRN PRN Reason: Pain, Mild 1-3,fever,headache Enoxaparin Sodium (Enoxaparin Sodium 40 Mg/0.4 Ml Syringe) 40 mg SUBCUT Q24H BHUPENDRA Lactated Ringer's (Lr) 1,000 mls @ 100 mls/hr IVCONT .Q10H BHUPENDRA Stop: 08/14/24 06:29 Levetiracetam 750 mg/ Sodium (Chloride) 107.5 mls @ 430 mls/hr IV Q12H BHUPENDRA Melatonin (Melatonin 3 Mg Tablet) 6 mg PO BEDTIME PRN PRN Reason: Insomnia Sodium Chloride (0.9 % Sodium Chloride Flush 3 Ml Syringe) 3 ml IVFLUSH QSHIFT BHUPENDRA Home Medications ?Medication ?Instructions ?Recorded ?Confirmed ?Last Taken ?Type No Known Home Meds 08/13/24 08/13/24 Unknown History Physical Exam 2 Vital Signs and Narrative: Vital Signs: Last Vital Signs Temp 98.0 F 08/13/24 19:10 Pulse 70 08/13/24 19:10 Resp 18 08/13/24 19:10 BP 110/60 08/13/24 19:10 Pulse Ox 97 08/13/24 19:10 O2 Del Method Room Air 08/13/24 19:10 O2 Flow Rate 3 08/13/24 17:38 BMI result Body Mass Index 28.5 Constitutional - Sedated but easy to arouse, No apparent distress HEENT - PERRLA, EOMI Heart - S1S2, RRR, No murmurs Lungs - Normal lung expansion, Normal respiratory effort, No respiratory distress, CTA bilaterally Abdomen - NT / ND; +BS; No rebound or guarding Extremities - no calf tenderness bilaterally, no swelling Musculoskeletal - Normal inspection, normal ROM Skin - Warm/Dry Neurological - Sedated. PERRL, EOMI. No facial droop. Follow simple commands. Answer simple questions appropriately. Psychological - No agitated. Results Labs 08/13/24 13:59 08/13/24 13:59 Labs: Laboratory Results - last 24 hr 08/13/24 08/13/24 08/13/24 13:59 14:48 15:19 MCV 82.6 MCH 28.4 MCHC 34.4 RDW 12.3 Plt Count 198 D MPV 8.9 L Immature Gran % (Auto) 0.4 Neut % (Auto) 66.8 Lymph % (Auto) 23.6 [place] % (Auto) 7.8 Eos % (Auto) 0.6 Baso % (Auto) 0.8 Lymph # (Auto) 1.2 [place] # (Auto) 0.4 Eos # (Auto) 0.0 Baso # (Auto) 0.0 Abs Immat Gran (auto) 0.02 Absolute Neuts (auto) 3.5 Absolute Nucleated RBC 0.000 Nucleated RBC % (auto) 0.0 Anion Gap 12 Estim Creat Clear Calc 178.6 Estimated GFR > 60 POC Glucose 112 Random Glucose 149 H Calcium 9.0 Total Bilirubin 0.9 AST 17 ALT 11 Alkaline Phosphatase 46 C-Reactive Protein 0.13 Total Protein 6.8 Albumin 4.3 Lipase 13 Urine Color Yellow Urine Appearance Clear Urine pH 5.5 Ur Specific [place] 1.015 Urine Protein Negative Urine Glucose (UA) Negative Urine Ketones Negative Urine Blood Negative Urine Nitrite Negative Ur Leukocyte Esterase Negative Urine RBC 0-2 Urine WBC 0-5 Ur Squamous Epith Cells 0-2 Urine Bacteria None Seen Hyaline Casts 0-2 Urine Opiates Screen Not Detected Ur Buprenorphine Scrn Not Detected Ur Oxycodone Screen Not Detected Urine Methadone Screen Not Detected Urine Fentanyl Screen Not Detected Ur Barbiturates Screen Not Detected Ur Phencyclidine Scrn Not Detected Ur Amphetamines Screen Not Detected U Benzodiazepines Scrn Not Detected Urine Cocaine Screen Not Detected U Marijuana (THC) Screen POSITIVE H Ethyl Alcohol 11 Assessment and Plan (1) New onset seizure: Status: Acute Plan Thomas Kyle is a 23 y/o man admitted with: * New onset seizures, possible related to marijuana + nicotine vaping and energy drinks consumption. No evidence of acute infection. Admit to hospitalist service. Telemetry. Neuro checks. Aspiration and seizure precautions. Continue Keppra 700 mg IV every 12 hours. Check EEG and brain MRI. Neurology consult. DVT prophylaxis: Lovenox Code status: Full Patient will need hospitalization for at least 2 midnights for new onset seizure management and evaluation with IV antiseizure medications, close monitoring of vital signs and neurological status; and evaluation by neurology service. Quality Stroke Does the patient have a stroke diagnosis?: No VTE Prior VTE?: No VTE Risk Level:: Medical - moderate - high VTE Device Contraindication: Treatment Not Indicated VTE Drug Contraindication: N/A - Med Ordered
[2024-08-13] MEDS: Lactated Ringers 1,000 ML 100 ML IVCONT (22:43)
[2024-08-14 05:37] VITALS: BP 99/49; PULSE 58; RESP 18; TEMP 36.8; O2SAT 96
--- NOTE | 2024-08-14 05:56 | PC.NURSE ---
pt resting comfortably throughout the night, VSS, no apparent distress noted, call vnies win reach. urinal emptied. L forearm IV removed, was half pulled out upon inspection.
[2024-08-14 07:03] LABS: MANUAL DIFF FLAG NO
[2024-08-14 07:16] LABS: Basophils Percent Auto 0.3 % (0-2); Eosinophils Percent Auto 0.1 % (0-4); Hematocrit 40.7 % (42.0-52.0); Imm Gran Abs Auto 0.03 X10*3/uL (0.00-0.03); Imm Gran Pct Auto 0.3 % (0.0-0.4); Lymphocytes Absolute Auto 2.2 X10*3/uL (1.2-4.9); Lymphocytes Percent Auto 23.9 % (20-40); Mean Corpuscular HGB Conc 34.4 g/dl (31.0-36.0); Mean Corpuscular Hemoglobin 28.5 pg (27.0-33.0); Mean Corpuscular Volume 82.9 fL (80.0-98.0); Mean Platelet Volume 9.3 fL (9.4-12.4); Monocytes Absolute Auto 0.8 X10*3/uL (0.1-1.2); Monocytes Percent Auto 8.2 % (2-11); Neutrophils Absolute Auto 6.2 x10*3/uL (2.0-8.3); Neutrophils Percent Auto 67.2 % (45-73); Platelet Count 211 X10*3/uL (160-400); Red Blood Count 4.91 X10*6/uL (4.60-5.80); Red Cell Distribution Width 12.2 % (11.0-16.0); White Blood Count 9.3 X10*3/uL (4.8-10.8)
[2024-08-14 07:25] LABS: Anion Gap 10 (12-20); Blood Urea Nitrogen 11 mg/dL (9-16); Calcium 9.2 mg/dL (8.4-10.2); Carbon Dioxide 27 mmol/L (22-29); Chloride 105 mmol/L (96-108); Creatinine Clr Calc Pharmacy 164.6; Estimated Glomerular Filt Rate > 60; Glucose Random 88 mg/dL (60-115); Magnesium 1.9 mg/dL (1.6-2.6); Potassium 3.4 mmol/L (3.3-5.1); Sodium 139 mmol/L (135-145)
--- NOTE | 2024-08-14 07:48 | PC.NURSE ---
MRI screening sheet completed/faxed.
--- NOTE | 2024-08-14 08:13 | PC.NURSE ---
Diet order placed by provider. Tray ordered from dietary.
[2024-08-14 08:15] VITALS: BP 94/53; PULSE 67; RESP 18; O2SAT 98
[2024-08-14] MEDS: levETIRAcetam 750 MG in 0.9 % Sodium Chloride 100 ML 430 MG IV (08:16)
--- NOTE | 2024-08-14 09:45 | MHC.CM.PN ---
Pt. lives with family, he is independent, he does not have a PCP, brochure given. He said he thinks he has health insurance through [employer], his employer, but does not have any information on it. He is able to arrange a ride home at [place], DCP: home, self care.
[2024-08-14 11:10] VITALS: BP 105/57; PULSE 66; RESP 16; O2SAT 95
--- NOTE | 2024-08-14 11:30 | PC.NURSE ---
Pt to MRI
--- NOTE | 2024-08-14 14:20 | P.PNIM_ITS ---
Subjective Subjective Date of Service: 08/14/24 Physical Exam 2 Vital Signs: Vital Signs: Last Vital Signs Temp 98.2 F 08/14/24 05:37 Pulse 66 08/14/24 11:10 Resp 16 08/14/24 11:10 BP 105/57 L 08/14/24 11:10 Pulse Ox 95 08/14/24 11:10 O2 Del Method Room Air 08/14/24 11:10 O2 Flow Rate 3 08/13/24 17:38 BMI result Body Mass Index 28.5 Objective Data Active Medications Acetaminophen (Acetaminophen 325 Mg Tablet) 975 mg PO Q6H PRN PRN Reason: Pain, Mild 1-3,fever,headache Diazepam (Diazepam 10 Mg/2 Ml Cartridge) 5 mg IVPUSH ONCE PRN PRN Reason: Seizures Enoxaparin Sodium (Enoxaparin Sodium 40 Mg/0.4 Ml Syringe) 40 mg SUBCUT Q24H [facility] Last Admin: 08/14/24 08:44 Dose: Not Given Documented By: DONA Non-Admin Reason: Patient Refused Comments: Ambulates often, made aware medication is used to prevent blood clots. Pt declines need. Levetiracetam 750 mg/ Sodium (Chloride) 107.5 mls @ 430 mls/hr IV Q12H [facility] Last Infusion: 08/14/24 08:31 Dose: Infused Documented By: DONA Melatonin (Melatonin 3 Mg Tablet) 6 mg PO BEDTIME PRN PRN Reason: Insomnia Sodium Chloride (0.9 % Sodium Chloride Flush 3 Ml Syringe) 3 ml IVFLUSH QSHIFT [facility] Last Admin: 08/14/24 07:28 Dose: Not Given Documented By: DONA Non-Admin Reason: IV Running Labs 08/14/24 06:21 08/14/24 06:21 Labs: Laboratory Results - last 24 hr 08/13/24 08/13/24 08/13/24 13:59 14:48 15:19 MCV 82.6 MCH 28.4 MCHC 34.4 RDW 12.3 Plt Count 198 D MPV 8.9 L Immature Gran % (Auto) 0.4 Neut % (Auto) 66.8 Lymph % (Auto) 23.6 [place] % (Auto) 7.8 Eos % (Auto) 0.6 Baso % (Auto) 0.8 Lymph # (Auto) 1.2 [place] # (Auto) 0.4 Eos # (Auto) 0.0 Baso # (Auto) 0.0 Abs Immat Gran (auto) 0.02 Absolute Neuts (auto) 3.5 Absolute Nucleated RBC 0.000 Nucleated RBC % (auto) 0.0 Anion Gap 12 Estim Creat Clear Calc 178.6 Estimated GFR > 60 POC Glucose 112 Random Glucose 149 H Calcium 9.0 Magnesium Total Bilirubin 0.9 AST 17 ALT 11 Alkaline Phosphatase 46 C-Reactive Protein 0.13 Total Protein 6.8 Albumin 4.3 Lipase 13 Urine Color Yellow Urine Appearance Clear Urine pH 5.5 Ur Specific [place] 1.015 Urine Protein Negative Urine Glucose (UA) Negative Urine Ketones Negative Urine Blood Negative Urine Nitrite Negative Ur Leukocyte Esterase Negative Urine RBC 0-2 Urine WBC 0-5 Ur Squamous Epith Cells 0-2 Urine Bacteria None Seen Hyaline Casts 0-2 Urine Opiates Screen Not Detected Ur Buprenorphine Scrn Not Detected Ur Oxycodone Screen Not Detected Urine Methadone Screen Not Detected Urine Fentanyl Screen Not Detected Ur Barbiturates Screen Not Detected Ur Phencyclidine Scrn Not Detected Ur Amphetamines Screen Not Detected U Benzodiazepines Scrn Not Detected Urine Cocaine Screen Not Detected U Marijuana (THC) Screen POSITIVE H Ethyl Alcohol 11 08/14/24 06:21 MCV 82.9 MCH 28.5 MCHC 34.4 RDW 12.2 Plt Count 211 MPV 9.3 L Immature Gran % (Auto) 0.3 Neut % (Auto) 67.2 Lymph % (Auto) 23.9 [place] % (Auto) 8.2 Eos % (Auto) 0.1 Baso % (Auto) 0.3 Lymph # (Auto) 2.2 [place] # (Auto) 0.8 Eos # (Auto) 0.0 Baso # (Auto) 0.0 Abs Immat Gran (auto) 0.03 Absolute Neuts (auto) 6.2 Absolute Nucleated RBC 0.000 Nucleated RBC % (auto) 0.0 Anion Gap 10 L Estim Creat Clear Calc 164.6 Estimated GFR > 60 POC Glucose Random Glucose 88 Calcium 9.2 Magnesium 1.9 Total Bilirubin AST ALT Alkaline Phosphatase C-Reactive Protein Total Protein Albumin Lipase Urine Color Urine Appearance Urine pH Ur Specific [place] Urine Protein Urine Glucose (UA) Urine Ketones Urine Blood Urine Nitrite Ur Leukocyte Esterase Urine RBC Urine WBC Ur Squamous Epith Cells Urine Bacteria Hyaline Casts Urine Opiates Screen Ur Buprenorphine Scrn Ur Oxycodone Screen Urine Methadone Screen Urine Fentanyl Screen Ur Barbiturates Screen Ur Phencyclidine Scrn Ur Amphetamines Screen U Benzodiazepines Scrn Urine Cocaine Screen U Marijuana (THC) Screen Ethyl Alcohol Quality Stroke Does the patient have a stroke diagnosis?: No VTE Prior VTE?: No VTE Risk Level:: Medical - moderate - high VTE Device Contraindication: Treatment Not Indicated VTE Drug Contraindication: N/A - Med Ordered
--- NOTE | 2024-08-14 14:26 | PM.DS ---
DS: Providers Provider Date of Service: 08/14/24 Date of admission: 08/13/24 20:28 Date of discharge: 08/14/24 Primary care physician: None Physician Consults: 08/13/24 20:32 Consult to Neurology Routine Consulting Provider: [facility] Reason for consultation: New onset seizures Has provider been notified: No DS: Diagnosis Discharge Diagnosis (1) New onset seizure: Status: Acute DS: Summary Hospital Course Hospital Course: Admission note HPI Thomas Kyle is a 23 years old man with no significant past medical history who was brought to the ED by his mother. His mother was at bedside and provided HPI as the patient was sedated. Motor said that today morning around 09:30, patient's brother noted that the patient was acting weird and saying: help! help!. She noted that he was opening his eyes widely, was sweating and vomiting. It seems like he was complaining of dizziness. EMS was contacted. According to the molar, EMS found the patient to have normal vital signs and a glucose of 142; and was told that he was probably having the flu. Subsequently, his monitor decided to take him to the hospital as he persistent with the same symptoms and became very pale. It seems like EMS declined transport. While being evaluated in the emergency department he had a witnessed tonic-clonic seizure with a focal facial twitching prodrome. There is no tongue biting or incontinence. Mother said that the patient vapes marijuana and nicotine. Denied illicit drug use. 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 The patient has no history of seizures. He has 2nd cousins with history of seizures. Mother said the patient does not take medications daily. In the ED, he was found to have normal vital signs. Blood workup including CBC, CMP, CRP and lipase are unremarkable. Urinalysis is normal. Urine toxicology is positive for marijuana. Viral testing for COVID-19, influenza and RSV is negative. Head CT scan showed no acute intracranial findings. ECG showed sinus bradycardia with sinus arrhythmia, 59 bpm. ED tx: Keppra 2 g IV, ketamine 25 mg IV, LR 1 L bolus, midazolam 6 mg IV, diazepam 10 mg IV, droperidol 1.25 mg Zofran 4 mg Hospital course The patient was admitted for evaluation of seizure like activity and altered mentation. The patient had wittnessed seizure in ED. Started on Keppra with good tolerance and no recurrence of seizures. CT and MRI of brain were negative for any acute findings. He tolerated diet well. Discussed with dr Santoyo from neurology who recommended starting Keppra 500 mg twice a day. The patient will get an EEG as outpatient. can follow with [facility] for further adjustment of dose. Advised not to drive or run heavy machinery for 6 months. Discharge plan Start Keppra 500 mg twice a day To do EEG as outpatient (brain electricity) Follow with [facility] Neurology for further management No Driving or running heavy machinery or swimming alone for 6 months The patient made quicker than expected recovery and will not need 2 overnight hospital stay. Time Attestation Discharge Coordination Time (in mins): 35 Quality: Safe Use of Opioids Does Pt have an Active Cancer Diagnosis on the Problem List?: No Quality: Stroke Does the patient have a stroke diagnosis?: No Physical Exam Vital Signs: Vital Signs: Last Vital Signs Temp 98.2 F 08/14/24 05:37 Pulse 66 08/14/24 11:10 Resp 16 08/14/24 11:10 BP 105/57 L 08/14/24 11:10 Pulse Ox 95 08/14/24 11:10 O2 Del Method Room Air 08/14/24 11:10 O2 Flow Rate 3 08/13/24 17:38 BMI result Body Mass Index 28.5 Const: Other: Constitutional : Awake, interactive, not in distress Neck : Normal inspection, Supple Cardiovascular : RRR, no JVP, no lower extremity edema Respiratory : good bilateral air entry, no crackles, wheezes or rhonchi Gastrointestinal: soft, lax, Normal bowel sounds, Non tender Skin : Warm, Dry Neurological : Alert & oriented x3, No focal deficit , CN 2-12 within normal DS: Data Data Completed and Pending Labs on day of discharge: Laboratory Results - last 24 hr 08/13/24 08/13/24 08/13/24 13:59 14:48 15:19 WBC RBC Hgb Hct MCV MCH MCHC RDW Plt Count MPV Immature Gran % (Auto) Neut % (Auto) Lymph % (Auto) Lawrence % (Auto) Eos % (Auto) Baso % (Auto) Lymph # (Auto) [place] # (Auto) Eos # (Auto) Baso # (Auto) Abs Immat Gran (auto) Absolute Neuts (auto) Absolute Nucleated RBC Nucleated RBC % (auto) Sodium Potassium Chloride Carbon Dioxide Anion Gap BUN Creatinine Estim Creat Clear Calc Estimated GFR POC Glucose 112 Random Glucose Calcium Magnesium C-Reactive Protein 0.13 Urine Color Yellow Urine Appearance Clear Urine pH 5.5 Ur Specific [place] 1.015 Urine Protein Negative Urine Glucose (UA) Negative Urine Ketones Negative Urine Blood Negative Urine Nitrite Negative Ur Leukocyte Esterase Negative Urine RBC 0-2 Urine WBC 0-5 Ur Squamous Epith Cells 0-2 Urine Bacteria None Seen Hyaline Casts 0-2 Urine Opiates Screen Not Detected Ur Buprenorphine Scrn Not Detected Ur Oxycodone Screen Not Detected Urine Methadone Screen Not Detected Urine Fentanyl Screen Not Detected Ur Barbiturates Screen Not Detected Ur Phencyclidine Scrn Not Detected Ur Amphetamines Screen Not Detected U Benzodiazepines Scrn Not Detected Urine Cocaine Screen Not Detected U Marijuana (THC) Screen POSITIVE H Ethyl Alcohol 11 08/14/24 06:21 WBC 9.3 RBC 4.91 Hgb 14.0 Hct 40.7 L MCV 82.9 MCH 28.5 MCHC 34.4 RDW 12.2 Plt Count 211 MPV 9.3 L Immature Gran % (Auto) 0.3 Neut % (Auto) 67.2 Lymph % (Auto) 23.9 [place] % (Auto) 8.2 Eos % (Auto) 0.1 Baso % (Auto) 0.3 Lymph # (Auto) 2.2 [place] # (Auto) 0.8 Eos # (Auto) 0.0 Baso # (Auto) 0.0 Abs Immat Gran (auto) 0.03 Absolute Neuts (auto) 6.2 Absolute Nucleated RBC 0.000 Nucleated RBC % (auto) 0.0 Sodium 139 Potassium 3.4 Chloride 105 Carbon Dioxide 27 Anion Gap 10 L BUN 11 Creatinine 0.77 Estim Creat Clear Calc 164.6 Estimated GFR > 60 POC Glucose Random Glucose 88 Calcium 9.2 Magnesium 1.9 C-Reactive Protein Urine Color Urine Appearance Urine pH Ur Specific [place] Urine Protein Urine Glucose (UA) Urine Ketones Urine Blood Urine Nitrite Ur Leukocyte Esterase Urine RBC Urine WBC Ur Squamous Epith Cells Urine Bacteria Hyaline Casts Urine Opiates Screen Ur Buprenorphine Scrn Ur Oxycodone Screen Urine Methadone Screen Urine Fentanyl Screen Ur Barbiturates Screen Ur Phencyclidine Scrn Ur Amphetamines Screen U Benzodiazepines Scrn Urine Cocaine Screen U Marijuana (THC) Screen Ethyl Alcohol Imaging MRI - head: Radiologist's impression: ITS Impressions Brain MRI 08/14/24 11:30 IMPRESSION: 1. No evidence of intracranial hemorrhage, acute infarction, mass effect, or edema. 2. No significant hippocampal signal abnormalities or atrophy. No signal abnormalities in the temporal lobes.. 3. No evidence of heterotopic pulido matter or cortical dysplasia identified. Electronically signed by: Raul Estevez MD 08/14/2024 12:33 PM EDT Discharge Plan Discharge Anticipated Discharge Date/Time: 08/14/24 14:23 Patient Disposition: Home, Self-Care Discharge Diagnosis: Seizure Referrals: Physician,None [Primary Care Provider] - 1 Week Discharge Medications: New levetiracetam 500 mg tablet 500 mg PO BID Qty: 180 0RF Discharge Orders: Discharge Order (Routine); Ordered 08/14/24 Ordered By: Wil Matos Diet: Advance to usual diet Activity on Discharge: As tolerated Stand Alone Forms: Patient Portal Discharge page, Work/School Release Print Language: Monegasque Other Ambulatory Orders: EEG electroencephalogram (Routine) Timeframe: 1 Week Facility: [facility] - Location: Radiology Ordered By: Wil Matos Care Plan Goals: Start Keppra 500 mg twice a day To do EEG as outpatient (brain electricity) Follow with [facility] Neurology for further management No Driving or running heavy machinery or swimming alone for 6 months Health Concerns: New onset seizure Plan of Treatment: KEppra Neurology follow up Assessment: as above Discharge Date/Time: 08/14/24 15:04
[2024-08-14 14:31] VITALS: BP 95/53; PULSE 60; RESP 16; TEMP 36.9
[2024-08-14 14:50] VITALS: BP 95/53; PULSE 67; RESP 16; TEMP 36.8; O2SAT 98
== END 2024-08-14 15:04 | disposition home or self-care (01) | DRG 101 ==
LOC: HO.ED 17:42 → HO.EDOVER 20:55
PROVIDERS: Emergency Medicine; Physician Assistant; Admitting Provider Internal Medicine; Emergency Provider Emergency Medicine; Visit Provider Student in an Organized Health Care Education/Training Program
DX: R56.9 Unspecified convulsions (principal); F17.290 Nicotine dependence, other tobacco product, uncomplicated; F12.90 Cannabis use, unspecified, uncomplicated; Z71.6 Tobacco abuse counseling
CPT/HCPCS: 36415; 70450; 70551; 80048; 80053; 80307; 81001; 82947; 83690; 83735; 84146; 85025; 86140; 93005; 99285; J1790; J1953; J2250; J2405; J3360; J7120

== ENCOUNTER → 2024-08-13 15:02 | Outpatient (BNV) | payer SELFPAY | PROVIDERS: Admitting Provider Internal Medicine; Emergency Provider Emergency Medicine; Visit Provider Internal Medicine Cardiovascular Disease | DX: I49.9 Cardiac arrhythmia, unspecified (principal); R00.1 Bradycardia, unspecified | CPT/HCPCS: 93010 ==

== ENCOUNTER → 2024-08-13 15:24 | Outpatient (BNV) | payer SELFPAY | PROVIDERS: Admitting Provider Internal Medicine; Emergency Provider Emergency Medicine; Visit Provider Radiology Diagnostic Radiology | DX: G93.0 Cerebral cysts (principal) | CPT/HCPCS: 70450 ==

== ENCOUNTER 2024-08-13 20:28 | Outpatient (BNV) | payer SELFPAY | END 2024-08-14 07:00 | PROVIDERS: Admitting Provider Internal Medicine; Emergency Provider Emergency Medicine; Visit Provider Radiology Diagnostic Radiology | DX: R56.9 Unspecified convulsions (principal) | CPT/HCPCS: 70551 ==

== ENCOUNTER → 2024-08-13 20:28 | Outpatient (BNV) | payer SELFPAY | PROVIDERS: Admitting Provider Internal Medicine; Emergency Provider Emergency Medicine; Visit Provider Internal Medicine | DX: R56.9 Unspecified convulsions (principal) | CPT/HCPCS: 99222; 99239 ==

== ENCOUNTER 2024-12-28 12:54 | Outpatient (AMB) | payer MEDICAID, SELFPAY ==
--- NOTE | 2024-12-28 12:55 | A.OFFVIS_ITS ---
Vital Signs 12/28/24 13:03 Height 5 ft 9 in Weight 205 lb BMI 30.3 BP 110/70 Blood Pressure Location Lt brachial Position Sitting Respiration 16 Pulse 77 Pulse Source Pulse Oximeter Pulse Oximetry (%) 99 Oxygen Delivery Method Room Air Intake Visit Reasons: seizure disorder Manager Social Media Required: No Accompanied by: Aunt Allergies No Known Allergies Allergy (Verified 12/28/24 13:05) Medication List - Last Reconciled 12/28/24 by Alyse Salter, [place] levetiracetam 500 mg PO BID HPI Comments Details: Thomas is a 24-year-old male patient who is in general good health who presented to the emergency department at [facility] in August of 2024 with a new onset seizure. According to notes, he had been dizzy and vomiting leading up to his visit and during his emergency room stay had a witnessed tonic-clonic event. He had a brain MRI performed at that time which was unrevealing. A CT of the brain in the emergency room was also nonacute. The plan at time of discharge was to start Keppra 500 mg twice daily and to perform an EEG outpatient. Today he is present in the clinic with his aunt who had legal custody of it as a child and was his primary caregiver. She tells me that he was a healthy child and never had any major health conditions that she was aware of. Thomas tells me that leading up to his seizure events he did have some headaches which is not like him. Aside from this he had no other symptoms. He denies any alcohol use, cocaine use, or street drugs. He does admit to occasional marijuana use and vaping. He has not had any seizure activity in the past that he is aware of and denies any loss of consciousness episodes or any abnormal/involuntary movements in the past. His aunt has noticed some staring episodes that do take place here and there which he is talking to him though it is not clear if this might be mood related. He did not start any new medications prior to his seizure events and he was not ill that he was aware of. He had no disruptions in sleep or any increases in his stress as he can note. Seizure background information: Onset of seizures:August 2024 Date of last seizure:August 2024 Seizure type:Generalized Aura/warning signs:Dizziness Postictal period: Somnolence and confusion Triggers: Unknown Last brain imaging: August 2024 - normal Last EEG:N/A Current medications: Levetiracetam 500 mg twice daily Compliance with medications: Reports good compliance without any missed doses of medication History of brain infection: No History of significant illness or hospitalization: No History of stroke of brain bleed:No History of pre-term : No History of learning disability:No History of developmental delay:No History of IEP in school:No Years of schooling completed: 12 years and certifications beyond Family history of seizure:Possibly 2 cousins with seizure history but not confirmed Driving status:Not currently (6 months from time of last seizure) Family/social support:Good family support Social/medical services within the home:None Prior workup: MRI brain 08/14/2024 IMPRESSION: 1. No evidence of intracranial hemorrhage, acute infarction, mass effect, or edema. 2. No significant hippocampal signal abnormalities or atrophy. No signal abnormalities in the temporal lobes.. 3. No evidence of heterotopic pulido matter or cortical dysplasia identified. [facility] Medical History (Updated 12/28/24 @ 13:29 by Alyse Salter CNP) Seizure disorder Heart murmur Family History (Updated 12/28/24 @ 13:05 by Toni Stokes CMA) Mother Anemia Father Heart disease Social History (Updated 08/13/24 @ 15:13 by Emelina Fermin DO) Patient Tobacco Use Status: Never used Tobacco Substance Use Type: Marijuana Review of Systems Const All systems reviewed & are unremarkable except as noted in HPI and below Physical Exam Vital Signs: Last Vital Signs Pulse 77 12/28/24 13:03 Resp 16 12/28/24 13:03 BP 110/70 12/28/24 13:03 Pulse Ox 99 12/28/24 13:03 Oxygen Delivery Method Room Air 12/28/24 13:03 BMI result Body Mass Index 30.3 Const General: cooperative, healthy appearing, comfortable and no acute distress Nutritional Appearance: well nourished Orientation/consciousness: patient oriented x3 Limitations: no limitations HEENT Head: Yes normal to inspection and Yes normocephalic Eyes General: appearance normal, both eyes and all related structures Visual De La Torre: normal visual de la torre by confrontation Alignment and Position: alignment normal Periorbital: periorbital findings normal Eyelids: Yes eyelids normal Conjunctivae: conjunctivae normal Sclerae: sclerae normal Neuro General: patient oriented x3 and deep tendon reflexes 2+ bilaterally Cranial nerves: Yes CN's II-XII intact bilaterally and Yes Facial sensation intact/muscles of mastication intact Cognition (Neuro): normal cognition Gait exam (Neuro): Normal gait present Motor exam (neuro): 5/5 motor strength present throughout and no tremor noted Sensory Exam: double simultaneous stimulation for sensation normal Romberg Test: Negative Pupils: Normal pupillary reactivity/response: bilateral Psych Appearance: grossly normal Mental Status: mental status grossly normal Speech and movement: Normal speech and movement present and Clear speech present Affect: normal affect Attitude: cooperative Thought process: Normal thought process present Thought content: Normal thought content present Insight: Good insight present (Psych) Judgement: Good judgement present (Psych) Assessment & Plan Assessment & Plan (1) Seizure disorder: Code(s): G40.909 - Epilepsy, unspecified, not intractable, without status epilepticus Category: Medical Plan Thomas is a 24-year-old male patient who is in general good health who presented to the emergency department at [facility] in August of 2024 with a new onset seizure. In August of 2024 he is admitted to the hospital for tonic-clonic seizures which were seemingly unprovoked. He has no major risk factors for seizure though according to his mother there may be 2 cousins on his father's side of the family who have a seizure history. There was no further information on this. He did have an MRI of the brain which was reassuring however never did get his outpatient EEG as recommended. He has been compliant with Keppra 500 mg twice daily and has not had any subsequent seizure events while on this medication. I am recommending a routine EEG and we can follow up after his EEG -routine EEG -continue Keppra 500 mg twice daily -follow up after EEG Orders: Orders EEG Routine Today G40.909 - Epilepsy, unspecified, not intractable, without status epilepticus Coding Level of Care Code New Pt Level 4 (35543) Diagnoses Seizure disorder G40.909
[2024-12-28 13:03] VITALS: BP 110/70; PULSE 77; RESP 16; O2SAT 99; BMI 30.3
--- OUTSIDE RECORDS SUMMARY | 2024-12-28 16:25 | XMS_ITS | Clinical Summary ---
Author Organization [employer] Address [address] [place] [address] [address] [place] [address] Care Team Providers Care Nuclear Technician Name Role Phone Unavailable Primary Care Provider Unavailabl e Allergies No known active allergies Medications levETIRAcetam (Keppra) 500 MG tabletIndication s:Seizure disorder (CMS/HCC) ([facility]) Take 1 tablet (500 mg) by mouth 2 times daily. 60 tablet 3 11/10/2024 Active Active Problems Problem Noted Date Diagnosed Date Seizure disorder (CMS/HCC) 11/10/2024 Encounters Date Type Department Care Team Description 11/10/2024 1:40 PM EDT Office Visit [facility] [address] [place] [address] [phone] Tracie Hernandez MD Seizure disorder (CMS/HCC) 11/10/2024 Travel 10/01/2024 Telephone [facility] [address] [place] [phone] Yasir Hill MD from Last 3 Months Social History Tobacco Use Types Packs/Day Years Used Date Smoking Tobacco: Never Assessed Sex and Gender Information Value Date Recorded Sex Assigned at Male 01/01/2022 10:17 AM EDT Legal Sex Male 10:17 AM EDT Gender Identity Male 01/01/2022 10:17 AM EDT Sexual Orientation Straight 01/01/2022 10 :17 AM EDT Last Filed Vital Signs Vital Sign Reading Time Taken Comments Blood Pressure 119/68 11/10/2024 1:49 PM EDT Pulse 76 11/10/2024 1:49 PM EDT Temperature 36.8 C (98.2 F) 11/10/2024 1:49 PM EDT Respiratory Rate 18 11/10/2024 1:49 PM EDT Oxygen Saturation 96% 11/10/2024 1:49 PM EDT Inhaled Oxygen Concentration - - Weight 93.1 kg (205 lb 3.2 oz) 11/10/2024 1:49 P M EDT Height 179 cm (5' 10.47 ) 01/04/2020 12:11 AM ES T Body Mass Index 29.05 01/04/2020 12:11 AM EST Plan of Treatment Upcoming Encounters Date Type Department Care Team (Late st Contact Info) Description 01/22/2025 10:15 AM EST Office Visit [facility] [address], [place] [phone] Tracie Hernandez MD [address] [place], [place] [phone] Health Maintenance Due Date Last Done Comments Chlamydia and Gonorrhea Screening 2001 Depression Screening 2001 HIV Screening 2001 Lipid Panel 2001 SDOH Screening 2001 Disability Screening 2001 Alcohol/Substance Use Screening 2013 Tobacco Screening 2013 Family Planning (PISQ) 2016 Meningococcal B Vaccine (1 of 2 - Standard) 2017 Hepatitis C Screening 12/11/2019 DTaP/Tdap/Td Vaccines (7 - Td or Tdap) 08/06/2024 08/06/2014, 08/13/2006, 07/23/2003, Additional history exists COVID-19 Vaccine (2 - season) 2024 04/08/2022 Influenza Vaccine (#1) 2024 01/04/2020, 2015 Zoster Vaccines (1 of 2) 12/11/2051 RSV Patients and Patients Aged 60 years or older (1 - 1-dose 75+ series) 2076 Pneumococcal Vaccine: Pediatrics (0 to 5 Years) and At-Risk Patients (6 to 49) Years Aged Out 08/27/2002, 06/02/2002, 02/02/2002 No longer eligible based on patient's age to complete this topic HIB Vaccines Completed 07/23/2003, 0 06/2003, 06/02/2002, Additional history exists IPV Vaccines Completed 08/13/2006, 07/03, 06/02/2002, Additional history exists Hepatitis B Vaccines Completed 12/11/2011, 07/28/2003, 08/27/2002, Additional history exists HPV Vaccines Completed 11/18/2015, 05/04, 08/06/2014 Hepatitis A Vaccines Completed 06/07/2017, 11/18/19 16 Meningococcal Vaccine Completed 08/18/2018, 015 RSV under 20 months Aged Out No longe r eligible based on patient's age to complete this topic Rotavirus Vaccines Aged Out No longer eligible based on patient's age to complete this topic Insurance [facility] C[facility]
== END 2024-12-28 13:44 | disposition home or self-care (01) ==
LOC: HO.HSM 12:55
PROVIDERS: PCP Internal Medicine; Visit Provider Nurse Practitioner
DX: G40.909 Epilepsy, unspecified, not intractable, without status epilepticus (principal)
CPT/HCPCS: 99204

== ENCOUNTER → 2024-12-28 12:54 | Outpatient (BNVA) | payer MEDICAID, SELFPAY | PROVIDERS: PCP Internal Medicine; Visit Provider Nurse Practitioner | DX: G40.909 Epilepsy, unspecified, not intractable, without status epilepticus (principal) | CPT/HCPCS: 99202 ==

== ENCOUNTER 2025-01-19 13:08 | Outpatient (REF) | payer MEDICAID, SELFPAY ==
--- NOTE | 2025-01-19 14:12 | EEG_ITS ---
Reason for Exam: G40.909 epilepsy History: Patient presented to the emergency department at [facility] in August of 2024 with a new onset seizure. According to notes, he had been dizzy and vomiting leading up to his visit and during his emergency room stay had a witnessed tonic-clonic event. No episodes since. He had a brain MRI performed at that time which was unrevealing. A CT of the brain in the emergency room was also nonacute. Medications: levetiracetam Technical Description Photic Stimulation: completed Hyperventilation: performed - good effort Behavioral State: pleasant, sleepy State of Consciousness: awake and sleep Skull Defect: none Sedation: none Handedness: left Duration: 32 min 15 sec Description: This is a 16 channel EEG with an EKG lead. Patient is reported awake and sleep during the tracing. Background EEG rhythm during wakefulness is low amplitude fast and patient frequently transitioned into drowsiness and light sleep. Intermittently right temporal sharply controlled theta range discharges were noted followed by 2nd or 2 of slowing. Cardiac lead did not reveal any significant abnormality. Photic stimulation did not produce any significant driving. Hyperventilation did not produce any significant abnormality. Impression: Mildly abnormal EEG suggestive of right temporal irritability. MTDD
--- OUTSIDE RECORDS SUMMARY | 2025-01-20 04:56 | XMS_ITS | Clinical Summary ---
Author Organization [email or web address] Address [address] [place] [address] [address] [place] [address] Care Team Providers Care Studio Associate Name Role Phone Unavailable Primary Care Provider Unavailabl e Allergies No known active allergies Medications levETIRAcetam (Keppra) 500 MG tabletIndication s:Seizure disorder (CMS/HCC) (HCC) Take 1 tablet (500 mg) by mouth 2 times daily. 60 tablet 3 11/10/2024 Active Active Problems Problem Noted Date Diagnosed Date Seizure disorder (CMS/HCC) 11/10/2024 Encounters Date Type Department Care Team Description 01/14/2025 Patient Outreach [facility] [address] [place] [id number] Tracie Hernandez MD Pre-visit Planning (SDOH screening negative and tobacco screening negative) 11/10/2024 1:40 PM EDT Office Visit [facility] [address] [place] [phone] Tracie Hernandez MD Seizure disorder (CMS/HCC) 11/10/2024 Travel from Last 3 Months Social History Tobacco Use Types Packs/Day Years Used Date Smoking Tobacco: Never Assessed Housing Stability Answer Date Recorded What is your housing situation today? I have dusty [place] 01/14/[address] you li ve. Do you have problems with any of the following? None of the above 01/14/2025 Food Insecurity Answer Date Recorded Within the past 12 months, y ou worried that your food would run out before you got money to buy more: Never True 01/14/2025 Within the past 12 months,th e food you bought just didn't last and you didn't have enough money to get more: Never True Transportation Answer Date Recorded In the past 12 months, has l ack of transportation kept you from medical appts, meetings, work or from getting things needed for daily living? No 01/14/2025 Utilities Answer Date Recorded In the past 12 months, has t he electric, gas, oil or water company threatened to shut off services in your home? No 01/14/2025 Internet Access Answer Date Recorded Internet Access Q1 Yes 01/14/2025 Internet Access Q2 Not on file 01/14/2025 Sex and Gender Information Value Date Recorded [...] Description 01/22/2025 10:15 AM EST Office Visit [facility] [address] [place] [address] Tracie Hernandez MD [address] [place] [address] Health Maintenance Due Date Last Done Comments Chlamydia and Gonorrhea Screening 2001 Depression Screening 2001 HIV Screening 2001 Lipid Panel 2001 Disability Screening 2001 Alcohol/Substance Use Screening 2013 Tobacco Screening 2013 Family Planning (PISQ) 2016 Meningococcal B Vaccine (1 of 2 - Standard) 2017 Hepatitis C Screening 12/11/2019 DTaP/Tdap/Td Vaccines (7 - Td or Tdap) 08/06/2024 08/06/2014, 08/13/2006, 07/23/2003, Additional history exists COVID-19 Vaccine (2 - 2024- season) 2024 04/08/2022 Influenza Vaccine (#1) 2024 01/04/2020, 2015 SDOH Screening 01/14/2026 01/14/2025 Zoster Vaccines (1 of 2) 12/11/2051 RSV Patients and Patients Aged 60 years or older (1 - 1-dose 75+ series) 2076 Pneumococcal Vaccine: Pediatrics (0 to 5 Years) and At-Risk Patients (6 to 49) Years Aged Out 08/27/2002, 06/02/2002, 02/02/2002 No longer eligible based on patient's age to complete this topic HIB Vaccines Completed 07/23/2003, 06/2003, 06/02/2002, Additional history exists IPV Vaccines [...] patient's age to complete this topic Insurance [address] [place], [place] [address] C[employer]
== END 2025-01-19 13:09 | disposition home or self-care (01) ==
LOC: HO.NEURO 13:08
PROVIDERS: PCP Internal Medicine; Visit Provider Nurse Practitioner
DX: G40.909 Epilepsy, unspecified, not intractable, without status epilepticus (principal)
CPT/HCPCS: 95819

== ENCOUNTER → 2025-01-19 14:12 | Outpatient (BNV) | payer MEDICAID, SELFPAY | PROVIDERS: PCP Internal Medicine; Visit Provider Psychiatry & Neurology Neurology | DX: G40.909 Epilepsy, unspecified, not intractable, without status epilepticus (principal); R94.01 Abnormal electroencephalogram [EEG] | CPT/HCPCS: 95819 ==

== ENCOUNTER 2025-01-25 07:51 | Emergency (ER) | payer OTHER, MEDICAID, SELFPAY ==
--- NOTE | ~2025-01-25 | XR_ITS ---
EXAMINATION: XR HAND, LEFT CLINICAL INFORMATION: large laceration back of the hand, trauma COMPARISON: None available. TECHNIQUE: PA, lateral, and oblique views of the left hand. FINDINGS: No fracture, dislocation, or suspicious bone lesion. Normal bone mineralization. Normal alignment. Joint spaces are preserved. No significant arthropathy. Soft tissues appear normal. No radiopaque foreign body. XR/XR hand LT min 3V IMPRESSION: Normal left hand radiographs. Electronically signed by: Raul Estevez MD 01/25/2025 08:46 AM RICH FITZGERALD
[2025-01-25 08:00] VITALS: BP 126/72; BP 97/56; PULSE 64; RESP 18; TEMP 36.9; O2SAT 98; BMI 30.1
[2025-01-25] MEDS: Lidocaine HCl 2 % MPF 5 ML VIAL SUBCUT (08:23)
[2025-01-25] MEDS: Diphth,Pertus(ACell),Tet Adult 0.5 ML SYRINGE IM (08:24)
--- NOTE | 2025-01-25 08:27 | ED.EXTPRO ---
HPI - Extremity Problem General Chief complaint: Extremity Injury, Upper Stated complaint: L HAND LAC FROM SHEET METAL@ WORK Source: patient and EMS Mode of arrival: EMS Limitations: no limitations History of Present Illness ED Provider: Nat Aldana PA-C HPI Narrative: 24 yo left hand dominant male with history of seizure disorder on Keppra who presents to the ER for evaluation of a large laceration to the back of his left hand that occurred at work just prior to arrival. Patient works at [email or web address] and was lifting boxes off of a conveyor belt when he accidentally hit his hand on a metal plate that was covering the controls. He sustained a large laceration to the back of his left hand. He had immediate pain and significant bleeding. He states that coworkers helped him control the bleeding and there was a nurse on site who placed a dressing over the wound. He is able to open and close his hand, denies any numbness or tingling. He is unsure of when his last tetanus shot. No other injuries. MD Complaint: other (hand laceration and pain) Onset (ago): minute(s) Pain Consistency: other (improving) Location: left Severity scale (1-10): 6 Quality: dull and constant Radiation: none Relieving factors: rest Exacerbating factors: palpation Associated symptoms: denies other symptoms Related Data Previous Rx's ?Medication ?Instructions ?Recorded levetiracetam 500 mg tablet 500 mg PO BID #180 tabs 08/14/24 amoxicillin 875 mg-potassium 1 tab PO BID #10 tabs 01/25/25 clavulanate 125 mg tablet Allergies Allergy/AdvReac Type Severity Reaction Status Date / Time No Known Allergies Allergy Verified 01/25/25 08:09 Review of Systems Review of Systems: Yes all other systems are reviewed and are negative [facility] Past Medical History Medical History (Updated 01/25/25 @ 08:32 by CLARITA Yuan) Seizure disorder Heart murmur Family History Family History (Updated 12/28/24 @ 13:05 by Toni Stokes CMA) Mother Anemia Father Heart disease Social History Social History Patient Tobacco Use Status: Never used Tobacco Substance Use Type: Marijuana Physical Exam Exam: Exam: Appearance: Alert. Oriented X3. No acute distress. HEENT: normal inspection CVS: Normal heart rate and rhythm. Pulses normal. Respiratory: No respiratory distress. Skin: Skin warm and dry. Normal skin color. Normal skin turgor. No rashes. Extremities: Dorsal aspect of the left hand with a large, approximately 4 by 4 cm triangular shaped, irregularly shaped complex laceration with loss of tissue, exposed tendons and vessels. Visible tendon movement with hand and finger flexion. normal appearance of all digits, neurovascularly intact distally. Normal sensation of the digits and palm. 2+ radial pulse. Mild oozing from the wound but no significant bleeding. no visible foreign bodies. equal hand grasp bilaterally, strength is equal and symmetrical throughout Neuro: Oriented X 3. No motor deficit. No sensory deficit. s/p closure Vital Signs: Vital Signs: Last Vital Signs Temp 98 F 01/25/25 09:30 Pulse 76 01/25/25 09:30 Resp 18 01/25/25 09:30 BP 110/76 01/25/25 09:30 Pulse Ox 98 01/25/25 09:30 O2 Del Method Room Air 01/25/25 08:00 BMI result Body Mass Index 30.1 Medications Administered Discontinued Medications Generic Name Dose Route Start Last Admin Trade Name Freq PRN Reason Stop Dose Admin Diphtheria/Tetanus/Acell Pertussis 0.5 ml 01/25/25 08:13 01/25/25 08:24 Diphth,Pertus(Acell),Tet Adult 0.5 Ml Syringe IM 01/25/25 08:14 0.5 ml .ONCE ONE Administration Lidocaine HCl 5 ml 01/25/25 08:13 01/25/25 08:23 Lidocaine Hcl 2 % Mpf 5 Ml Vial SUBCUT 01/25/25 08:14 5 ml ONCE ONE Administration Medical Decision Making Medical Decision Making MDM Narrative: 24-year-old left-hand dominant male presents to the ER for evaluation of a complex laceration he sustained on a metal sheet at work. tdap given examined w/ Dr. Deluna - wound edges seem to be able to be approximated photos taken and sent to Dr. Naqvi for recommendations - recommending washout, closing as able, close follow up in the office tomorrow. elisa KELLER aware of recs and will arrange office to make an appointment xr hand normal after local anesthetic given, copious washout w/ normal saline. skin was approximated and sutured closed w/ 12 sutures. bulky dressing applied to limit ROM will give empiric abx and have him f/u with Dr. Naqvi tomorrow, she can decide if she would like to continue them or not. reviewed treatment plan with patient and his aunt at the bedside. they expressed understanding and will f/u with Ortho tomorrow Differential Diagnosis Differential Diagnoses: The differential diagnosis associated with the presentation includes open fracture, complex hand laceration, partial degloving, tendon laceration Admission/Observation Consideration of admission/observation: Escalation of care including admission/observation considered Consult Healthcare Provider Management of the patient was discussed with: Hand Endband Cutter Dr. Naqvi and Elisa from Orthopedics Independent Interpretation I performed an independent interpretation of an: Plain X-Ray Interpretation: no acute fx apprciated Radiology Impression Discussion of test interpretation with radiology: I have reviewed the radiologist's reading. External Record Review External record reviewed: Outpatient record and Prior outpatient labs Prescription Management I considered prescription management with: Pain Medication and Antibiotic Chronic Conditions Patient?s care impacted by: Other (seizures) Procedures Laceration Laceration 1: Site: hand Side (If applicable): left Size (cm): 4 Description: irregular Depth: simple, single layer Local Anesthetic: lidocaine 1% Amount of anesthesia used (mL): 5 Pre-repair: wound explored, irrigated extensively and deep structures intact Skin layer closed with: nylon Size (cm): 4-0 Number of sutures: 12 Technique: simple, interrupted Discharge Plan Discharge Clinical Impression: Complicated laceration of hand Qualifiers: Encounter type: initial encounter Laterality: left Qualified Code(s): S61.412A - Laceration without foreign body of left hand, initial encounter Patient Disposition: Home, Self-Care Instructions: Laceration (DC) Additional Instructions: your x-ray was negative 12 stitches were used to close your wound today Elevate you hand as much as possible to help with pain and swelling Take motin and tylenol as needed for pain keep the dressing in place until you see Dr. Naqvi tomorrow in the office. they will call you for an appointment Take the prescribed antibiotics as directed, complete the entire course and do not miss any doses If you develop signs of infection including increased pain, swelling, redness or drainage of pus come back to the ER for further evaluation. Prescriptions: New amoxicillin-pot clavulanate 875-125 mg tablet 1 tab PO BID Qty: 10 0RF No Action levetiracetam 500 mg tablet 500 mg PO BID Qty: 180 0RF Referrals: Asuncion Naqvi MD [Physician, Hand Surgery] - 01/26/25 Referral Note: complex hand lac/partial degloving Clinical Impression: Complicated laceration of hand Stand Alone Forms: Work/School Release Interventions: ED Discharge Assessment Last Done: 01/25/25 09:30 Discharge Date/Time: 01/25/25 09:32 Print Language: Pakistani
--- OUTSIDE RECORDS SUMMARY | 2025-01-25 09:01 | XMS_ITS | Clinical Summary ---
Author Organization [employer] Address [address] [place] [address] [address] [place] [address] Care Team Providers Care Psychologist Engineering Name Role Phone Unavailable Primary Care Provider Unavailabl e Allergies No known active allergies Medications levETIRAcetam (Keppra) 500 MG tabletIndication s:Seizure disorder (CMS/HCC) ([facility]) Take 1 tablet (500 mg) by mouth 2 times daily. 60 tablet 3 11/10/2024 Active Active Problems Problem Noted Date Diagnosed Date Seizure disorder (CMS/HCC) 11/10/2024 Obesity 08/09/2017 Snoring 08/09/2017 Encounters Date Type Department Care Team Description 01/22/2025 Telephone [facility] [address] [place] [phone] Tracie Hernandez MD No Show 01/21/2025 Telephone [facility] [address] [place] [phone] Tracie Hernandez MD chart prep 01/14/2025 Patient Outreach [facility] [address] [place] [phone] Tracie Hernandez MD Pre-visit Planning (SDOH screening negative and tobacco screening negative) 11/10/2024 1:40 PM EDT Office Visit [facility] [address] [place] [address] [phone] Tracie Hernandez MD Seizure disorder (CMS/HCC) 11/10/2024 Travel from Last 3 Months Immunizations Immunization Administration Dates Next Due DTaP 08/13/2006, 4,08/27/2002,06/02,03/02/2002 HPV 9-Valent 11/18/2015,06/02/2015,08/06/2014 Hep A, ped/adol, 2 dose 06/07/2017,11/18/2015 Hep B, Adolescent or Pediatric 2,07/28/2003,08/27/2002,12/10 Hib (HbOC) 07/23/2003, 4,06/02/2002,02/02 IPV 08/13/2006, 4,06/02/2002,03/02 Influenza injectable quadriv alent preservative free 01/04/2020,11/18/2015 MMR 08/13/2006,07/28/2003 Meningococcal MCV4P ACYW-135 08/18/2018,08/07/19 15 Pneumococcal Conjugate PCV 7 08/27/2002,06/03/19 03,02/02/2002 Tdap 08/06/2014 Varicella 08/13/2006,07/28/2003 Social History Tobacco Use Types Packs/Day Years [...] 01/04/2020 12:11 AM EST Plan of Treatment Health Maintenance Due Date Last Done Comments [...] patient's age to complete this topic Insurance [facility] C3
--- OUTSIDE RECORDS SUMMARY | 2025-01-25 09:01 | XMS_ITS | Encounter Summary ---
Author Organization [employer] Address [address] [place] [address] [address] [place] [address] Care Team Providers Care Hospital Plan Administrator Name Role Phone Unavailable Primary Care Provider Unavailabl e Reason for Visit * Reason Onset Date Comments No Show 01/22/2025 Encounter Details Date Type Department Care Team ([facility] st Contact Info) Description 01/22/2025 Telephone [facility] [address] [place], [place] [phone] Tracie Hernandez MD [address] [place] [address] No Show Social History Tobacco Use Types Packs/Day Years [...] Orientation Straight 01/01/2022 10 :17 AM EDT documented as of this encounter Miscellaneous Notes * Telephone Encounter - Iliana Cardozo - 01/22/2025 10:34 AM EST Pt no showed to appointment on 01/22/25. documented in this encounter Plan of Treatment Not on file documented as of this encounter Visit Diagnoses Not on filedocumented in this encounter
--- OUTSIDE RECORDS SUMMARY | 2025-01-25 09:01 | XMS_ITS | Encounter Summary ---
Author Organization [employer] Address [address] [place] [address] [address] [place] [address] Care Team Providers Care Building Stonecutter Name Role Phone Unavailable Primary Care Provider Unavailabl e Reason for Visit * Reason Onset Date Comments chart prep 01/21/2025 Encounter Details Date Type Department Care Team ([facility] st Contact Info) Description 01/21/2025 Telephone [facility] [address] [place] [address] Tracie Hernandez MD [address] [place] [address] chart prep Social History Tobacco Use Types Packs/Day Years [...] encounter Miscellaneous Notes * Telephone Encounter - Christa Shaikh MA - 01/21/2025 2:06 PM EST Chart Prep Labs: not done from 11/10/2024 Images: not applicable Referrals: complete Neurology Pt kept appt on 12/28/24. Consult report under Encounters External Hospital Admission Vaccines due: Covid, Flu, and Tdap Screenings: STI screening Overdue care gaps: SBIRT, PHQ-9, BETTY-7, and Disability screen documented in this encounter Plan of Treatment Not on file documented as of this encounter Visit Diagnoses Not on filedocumented in this encounter
[2025-01-25 09:29] VITALS: BP 110/76; PULSE 76; RESP 18; TEMP 36.6; O2SAT 98
[2025-01-25 09:30] VITALS: BP 110/76; PULSE 76; RESP 18; TEMP 36.6; O2SAT 98
== END 2025-01-25 09:32 | disposition home or self-care (01) ==
PROVIDERS: Emergency Provider Emergency Medicine
DX: S61.412A Laceration without foreign body of left hand, initial encounter (principal); W31.82XA Contact with other commercial machinery, initial encounter; Y93.89 Activity, other specified; Y92.63 Factory as the place of occurrence of the external cause; Y99.0 Civilian activity done for income or pay; Z23 Encounter for immunization
CPT/HCPCS: 12002; 73130; 90471; 90715; 99284; J2003

== ENCOUNTER → 2025-01-25 08:13 | Outpatient (BNV) | payer OTHER, SELFPAY | PROVIDERS: Emergency Provider Emergency Medicine; Visit Provider Radiology Diagnostic Radiology | DX: S61.412A Laceration without foreign body of left hand, initial encounter (principal); W22.09XA Striking against other stationary object, initial encounter; Y92.69 Other specified industrial and construction area as the place of occurrence of the external cause | CPT/HCPCS: 73130 ==

== ENCOUNTER 2025-01-26 10:33 | Outpatient (AMB) | payer OTHER, SELFPAY ==
--- NOTE | 2025-01-26 10:41 | MHC.OFFVIS ---
Vital Signs 01/26/25 10:42 Height 5 ft 10 in Weight 210 lb BMI 30.1 Intake Visit Reasons: ED f/u- left hand degloving injury Intake Note: Thomas 24 yr old left hand dominant male presents today with his aunt Alayna for a W/C injury from 01/27/25 to his left hand. Patient works at [employer] and was lifting boxes off of a conveyor belt when he accidentally hit his hand on a metal plate that was covering the controls. He sustained a large laceration to the back of his left hand. Seen at [facility] ED where his laceration was clean and he received 12 stitches. Today dressing was removed, states he is feeling like a stabbing sensation. He is having numbness in his small finger and states he has good ROM in wrist and hand. Accompanied by: Alayna Schofield Aunt Allergies No Known Allergies Allergy (Verified 01/26/25 10:58) HPI HPI ED f/u- left hand degloving injury: Details: Thomas is a 25 year old right hand dominant man who presents for a left dorsal hand laceration injury, DOI: 01/25/25. He smacked his hand against the sharp edge of a metal console at work/ He was seen in the ED where he was cleaned & sutured. He works for [employer] and this is workplace injury. He says he feels a stabbing sensation in the back of his hand. He also has some finger stiffness. [facility] Medical History (Updated 01/26/25 @ 11:13 by Kashmir Roberts) Seizure disorder Heart murmur Family History (Updated 12/28/24 @ 13:05 by Toni Stokes [facility]) Mother Anemia Father Heart disease Social History (Updated 01/26/25 @ 10:59 by Merissa Santoyo [facility]) Patient Tobacco Use Status: Never used Tobacco Substance Use Type: Marijuana Current occupational status: employed Current occupation: [employer] hand Review of Systems Const All systems reviewed & are unremarkable except as noted in HPI and below Physical Exam Vital Signs: BMI result Body Mass Index 30.1 Const General: cooperative, healthy appearing and no acute distress Orientation/consciousness: patient oriented x3 HEENT Head: Yes normocephalic and Yes atraumatic Eyes EOM: EOMs intact bilaterally Resp Effort & Inspection: normal respiratory effort and able to speak in complete sentences Cardio Jugular venous distension: no JVD Skin General skin exam: turgor normal Rashes: no rashes Neuro General: patient oriented x3 Extrem Other: Evaluation of Left Upper Extremity: The patient is alert, oriented, and in no acute distress Neuro: Median, Ulnar, Radial nerves motor and sensory intact and sensation is normal to the tips of all digits He has some numbness about the hand laceration only Vascular: Cap refill brisk ROM: With encouragement he could bring his fingertips ~1cm from his palm and back into full extension Skin: complex laceration involving 3 flaps of tissue tot he dorsal aspect of his left hand The ER brought these flaps together nicely with 12 sutures Swelling in the dorsum of his hand & dorsal aspect of his MCP joints General: No Ecchymosis. No Erythema or evidence of infection. Radiographs: 3 views of the left hand from 01/25/25 were reviewed by me today in clinic. They show no fractures or dislocations. Psych Appearance: grossly normal Affect: normal affect Attitude: cooperative Assessment & Plan Assessment & Plan (1) Laceration of left hand: Code(s): S61.412A - Laceration without foreign body of left hand, initial encounter Category: Medical Plan Assessment & Plan: 1. Left complex dorsal hand laceration DOI: 01/25/25 Sutured in ED: 01/25/25 This is a workplace injury I educated him about this condition I discussed treatment options No operative intervention indicated at this time I explained the signs and symptoms of infection, if the patient develops any new or worsening erythema, drainage, pain, or warmth they should contact the clinic or attend the ED. He will take his Abx as instructed I discussed activity modifications, he is to lift nothing heavier than a cellphone for the next 4 weeks. 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 He was given a note for work to remain out of work for the next 2 weeks. He will follow up in 2 weeks for a wound check & suture removal Scribed for Asuncion Naqvi MD by Kashmir Roberts senior medical technologist, on 01/26/25 at 11:05 AM, EST. Coding Level of Care Code New Pt Level 3 (71788) Diagnoses Laceration of left hand S61.078C
[2025-01-26 10:42] VITALS: BMI 30.1
== END 2025-01-26 11:43 | disposition home or self-care (01) ==
LOC: HO.HOS 10:34
PROVIDERS: Visit Provider Orthopaedic Surgery
DX: S61.412A Laceration without foreign body of left hand, initial encounter (principal)
CPT/HCPCS: 99203

== ENCOUNTER → 2025-01-26 10:33 | Outpatient (BNVA) | payer OTHER, MEDICAID, SELFPAY | PROVIDERS: Visit Provider Orthopaedic Surgery | DX: S61.412A Laceration without foreign body of left hand, initial encounter (principal); R20.0 Anesthesia of skin | CPT/HCPCS: 99202 ==

== ENCOUNTER 2025-02-10 09:28 | Outpatient (AMB) | payer OTHER, SELFPAY ==
--- NOTE | 2025-02-10 09:40 | MHC.OFFVIS ---
Vital Signs 02/10/25 09:41 Height 5 ft 10 in Weight 210 lb BMI 30.1 Intake Visit Reasons: OV-left hand degloving injury, 2week F/U Intake Note: Thomas 24 yr old left hand dominant male presents today for his W/C injury to his left complex dorsal hand laceration from DOI: 01/25/25. At his last visit he was advise he is to lift nothing heavier than a cellphone for the next 4 weeks, keep wound clean. He will work on gentle ROM exercises at home. 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 He was given a note for work to remain out of work for the next 2 weeks. Today patient states he has numbness above his laceration between his small finger and middle finger on dorsum aspect of hand. He is limited ROM with his ring finger when making a fist. Allergies No Known Allergies Allergy (Verified 02/10/25 09:43) HPI HPI OV-left hand degloving injury, 2week F/U: Details: Thomas is a 25 year old right hand dominant man who returns for his left dorsal hand laceration injury, DOI: 01/25/25. He smacked his hand against the sharp edge of a metal console at work/ He was seen in the ED where he was cleaned & sutured. He works for [employer] and this is workplace injury. He says he is doing better, but continues to have limited ROM of his ring finger. He also complains of new numbness to the dorsum of his hand, between his middle & small fingers. [facility] Medical History (Updated 02/10/25 @ 10:08 by Kashmir Roberts) Seizure disorder Heart murmur Family History (Updated 12/28/24 @ 13:05 by Toni Stokes [facility]) Mother Anemia Father Heart disease Social History Patient Tobacco Use Status: Never used Tobacco Substance Use Type: Marijuana Current occupational status: employed Current occupation: [employer]/ rt hand Physical Exam Vital Signs: BMI result Body Mass Index 30.1 Extrem Other: Evaluation of Left Upper Extremity: The patient is alert, oriented, and in no acute distress Neuro: Median, Ulnar, Radial nerves motor and sensory intact and sensation is normal to the tips of all digits He has some numbness about the hand laceration only Vascular: Cap refill brisk ROM: With encouragement he could bring his fingertips ~1cm from his palm and back into full extension Skin: Complex laceration involving 3 flaps of tissue to the dorsal aspect of his left hand The ER brought these flaps together nicely with 12 sutures. Alternating sutures removed and steri-strips applied Swelling in the dorsum of his hand & dorsal aspect of his MCP joints Radiographs: 3 views of the left hand from 01/25/25 were reviewed by me today in clinic. They show no fractures or dislocations. Assessment & Plan Assessment & Plan (1) Laceration of left hand: Code(s): S61.412A - Laceration without foreign body of left hand, initial encounter Category: Medical (2) Numbness and tingling in left hand: Code(s): R20.0 - Anesthesia of skin; R20.2 - Paresthesia of skin Category: Medical Plan Assessment & Plan: 1. Left complex dorsal hand laceration DOI: 01/25/25 Sutured in ED: 01/25/25 This is a workplace injury 2. Left dorsal hand numbness In the area of complex laceration No palmar numbness, or numbness in digits I educated him about this condition I discussed treatment options No operative intervention indicated at this time I explained the signs and symptoms of infection, if the patient develops any new or worsening erythema, drainage, pain, or warmth they should contact the clinic or attend the ED. He has finished his Abx as instructed I explained that he may not regain sensation in the dorsal aspect of his hand, depending on healing. I discussed activity modifications, he is to lift nothing heavier than a cellphone for the next 2 weeks. 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 He will follow up next week for a wound check & remaining suture removal Scribed for Asuncion Naqvi MD by Kashmir Roberts medical housekeeper, on 02/10/25 at 10:00 AM, EST. Coding Level of Care Code Est Pt Level 3 (93999) Diagnoses Laceration of left hand S61.412A Numbness and tingling in left hand R20.0; R20.2
[2025-02-10 09:41] VITALS: BMI 30.1
== END 2025-02-10 10:21 | disposition home or self-care (01) ==
LOC: HO.HOS 09:28
PROVIDERS: Visit Provider Orthopaedic Surgery
DX: S61.412A Laceration without foreign body of left hand, initial encounter (principal); R20.0 Anesthesia of skin; R20.2 Paresthesia of skin
CPT/HCPCS: 99213

== ENCOUNTER → 2025-02-10 09:28 | Outpatient (BNVA) | payer OTHER, MEDICAID, SELFPAY | PROVIDERS: Visit Provider Orthopaedic Surgery | DX: S61.412A Laceration without foreign body of left hand, initial encounter (principal); R20.0 Anesthesia of skin; R20.2 Paresthesia of skin; W22.8XXA Striking against or struck by other objects, initial encounter; Y99.0 Civilian activity done for income or pay; Y92.89 Other specified places as the place of occurrence of the external cause | CPT/HCPCS: 99212 ==

== ENCOUNTER 2025-02-17 09:24 | Outpatient (AMB) | payer OTHER, SELFPAY ==
[2025-02-17 09:48] VITALS: BMI 30.1
--- NOTE | 2025-02-17 09:48 | MHC.OFFVIS ---
Vital Signs 02/17/25 09:48 Height 5 ft 10 in Weight 210 lb BMI 30.1 Intake Visit Reasons: OV - lt complex dorsal hand zipper trimmer. DOI 01/25/25 Intake Note: Thomas 24 yr old left hand dominant male presents today for his W/C injury to his left complex dorsal hand laceration from DOI: 01/25/25. At his last visit he was advise to avoid heavy lifting and keep incision clean. Today patient states he has keep it clean, he is washing his hand and has been working on his ROM. States he has numbness above his incision and has been this way since date of injury. At his last visit he was given a work note to remain out of work until he is re-evaluated. Allergies No Known Allergies Allergy (Verified 02/17/25 09:53) HPI HPI OV - lt complex dorsal hand zipper trimmer. DOI 01/25/25: Details: Thomas is a 25 year old right hand dominant man who returns for his left dorsal hand laceration injury, DOI: 01/25/25. He smacked his hand against the sharp edge of a metal console at work. He was seen in the ED where he was cleaned & sutured. He works for [employer] and this is workplace injury. He says he is doing better, but continues to have limited ROM of his ring finger. He continues to have numbness to the dorsum of his hand, between his middle & small fingers. This has not improved since his DOI. COUNT INCLUDES [facility] Medical History (Updated 02/10/25 @ 10:08 by Kashmir Roberts) Seizure disorder Heart murmur Family History (Updated 12/28/24 @ 13:05 by Toni Stokes [facility]) Mother Anemia Father Heart disease Social History (Updated 02/17/25 @ 09:53 by Merissa Santoyo [facility]) Patient Tobacco Use Status: Never used Tobacco Substance Use Type: Marijuana Current occupational status: employed Current occupation: [employer]/ left hand Review of Systems Const All systems reviewed & are unremarkable except as noted in HPI and below Physical Exam Vital Signs: BMI result Body Mass Index 30.1 Const General: no acute distress and alert Orientation/consciousness: patient oriented x3 Neuro General: patient oriented x3 Extrem Other: Evaluation of Left Upper Extremity: The patient is alert, oriented, and in no acute distress Neuro: Median, Ulnar, Radial nerves motor and sensory intact and sensation is normal to the tips of all digits, including the dorsum of the fingers He has some numbness about and dorsal to the hand laceration only Vascular: Cap refill brisk ROM: He can make a fist and extend all his digits Patient reports some achiness in the MCP & PIP joints of the ring & small fingers, likely secondary to disuse Skin: Complex laceration involving 3 flaps of tissue to the dorsal aspect of his left hand The wound is now well healed Remaining sutures removed applied today Improved swelling in the dorsum of his hand & dorsal aspect of his MCP joints Psych Appearance: grossly normal Affect: normal affect Attitude: cooperative Assessment & Plan Assessment & Plan (1) Laceration of left hand: Code(s): S61.412A - Laceration without foreign body of left hand, initial encounter Category: Medical (2) Numbness and tingling in left hand: Code(s): R20.0 - Anesthesia of skin; R20.2 - Paresthesia of skin Category: Medical Plan Assessment & Plan: 1. Left complex dorsal hand laceration DOI: 01/25/25 Sutured in ED: 01/25/25 This is a workplace injury 2. Left dorsal hand numbness In the area of complex laceration No palmar numbness, or numbness in digits No treatment indicated I educated him about this condition He has gone on to heal well they should contact the clinic or attend the ED. I explained that he may not regain sensation in the dorsal aspect of his hand, depending on healing. 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 Coding Level of Care Code Est Pt Level 3 (79972) Diagnoses Laceration of left hand S61.412A Numbness and tingling in left hand R20.0; R20.2
--- OUTSIDE RECORDS SUMMARY | 2025-02-17 10:43 | XMS_ITS | Clinical Summary ---
Author Organization [employer] Address [address] [place] [address] [address] [place] [address] Care Team Providers Care Flower Picker Name Role Phone Unavailable Primary Care Provider Unavailabl e Allergies No known active allergies Medications levETIRAcetam (Keppra) 500 MG tabletIndication s:Seizure disorder (CMS/HCC) ([facility]) Take 1 tablet (500 mg) by mouth 2 times daily. 60 tablet 3 11/10/2024 Active Active Problems Problem Noted Date Diagnosed Date Seizure disorder (CMS/HCC) 11/10/2024 Obesity 08/09/2017 Snoring 08/09/2017 Encounters Date Type Department Care Team Description 01/25/2025 Orders Only [facility] External Provider, [facility] 01/22/2025 Telephone [facility] [address] [place] [id number] Tracie Hernandez MD No Show 01/21/2025 Telephone [facility] [address] [place] [id number] Tracie Hernandez MD chart prep 01/14/2025 Patient Outreach [facility] [address] [place] [address] [phone] Tracie Hernandez MD Pre-visit Planning (SDOH screening negative and tobacco screening negative) from Last 3 Months Immunizations Immunization Administration [...] on patient's age to complete this topic Procedures Procedure Name Priority Date/Time Associated Diagnosis Comments XR HAND 3+ VIEWS LEFT Routine 01/25/2025 8:30 AM EST from Last 3 Months Results * XR Hand 3+ Views Left (01/25/2025 8:30 AM EST) Anatomical Region Laterality Modality Upper Extremities, Hand [facility] 01/25/2025 8:30 AM EST Narrative 01/25/2025 8:49 AM EST [place] [address] XRay Report Signed Patient: Thomas Kyle MR#: [id number] 8 : 2000 Acct:[id number] Age/Sex: 24 / M ADM Date: 01/25/25 Loc: HO.ED Attending Dr: Ordering Physician: Jennifer Aldana Date of Service: 01/25/25 Procedure(s): XR hand LT min 3V Accession Number(s): [id number] cc: [facility]; Jennifer Aldana Reason for Exam: large laceration back of the hand, trauma EXAMINATION: XR HAND, LEFT CLINICAL INFORMATION: large laceration back of the hand, trauma COMPARISON: None available. TECHNIQUE: PA, lateral, and oblique views of the left hand. FINDINGS: No fracture, dislocation, or suspicious bone lesion. Normal bone mineralization. Normal alignment. Joint spaces are preserved. No significant arthropathy. Soft tissues appear normal. No radiopaque foreign body. XR/XR hand LT min 3V IMPRESSION: Normal left hand radiographs. Electronically signed by: Raul Estevez MD 01/25/2025 08:46 AM EST RP Dictated By: Raul Estevez MD Signed By: <Electronically signed by Raul Estevez MD in OV> 01/25/2546 DD/ 9 TD/TT: 01/25/25 0835 Internal Communications Writer: Procedure Note Donotuseinterpreter, Image - 01/25/[address] [address] XRay Report Signed Patient: Thomas KyleMR#: [id number] 8 : 2000Acct:[id number] Age/Sex: 24 / MADM Date: 01/25/25 Loc: .ED Attending Dr: Ordering Physician: Jennifer Aldana Date of Service: 01/25/25 Procedure(s): XR hand LT min 3V Accession Number(s): [id number] cc: [facility]; Jennifer Aldana Reason for Exam: large laceration back of the hand, trauma EXAMINATION: XR HAND, LEFT CLINICAL INFORMATION: large laceration back of the hand, trauma COMPARISON: None available. TECHNIQUE: PA, lateral, and oblique views of the left hand. FINDINGS: No fracture, dislocation, or suspicious bone lesion. Normal bone mineralization. Normal alignment. Joint spaces are preserved. No significant arthropathy. Soft tissues appear normal. No radiopaque foreign body. XR/XR hand LT min 3V IMPRESSION: Normal left hand radiographs. Electronically signed by: Raul Estevez MD 01/25/2025 08:46 AM EST RP Dictated By: Raul Estevez MD Signed By: <Electronically signed by Raul Estevez MD in OV> 01/25/25 0846 DD/ 9 TD/TT: 01/25/25 0835 Internal Communications Writer: [facility] External Provider IMG XR PROCEDURES Edited Result - Final from Last [address] [place] [address] [place] [address] C3
== END 2025-02-17 10:28 | disposition home or self-care (01) ==
LOC: HO.HOS 09:25
PROVIDERS: Visit Provider Orthopaedic Surgery
DX: S61.412A Laceration without foreign body of left hand, initial encounter (principal); R20.0 Anesthesia of skin; R20.2 Paresthesia of skin
CPT/HCPCS: 99213

== ENCOUNTER → 2025-02-17 09:24 | Outpatient (BNVA) | payer OTHER, MEDICAID, SELFPAY | PROVIDERS: Visit Provider Orthopaedic Surgery | DX: S61.412A Laceration without foreign body of left hand, initial encounter (principal); R20.0 Anesthesia of skin; R20.2 Paresthesia of skin | CPT/HCPCS: 99212 ==